=== PATIENT | female | born 1955 | race Caucasian/White ===

== ENCOUNTER 2019-11-20 11:17 | Outpatient (CLI) | payer MEDICARE, SELFPAY ==
[2019-11-20 12:34] LABS: Basophils Absolute Auto 0.1 K/mm3 (0.0-0.1); Basophils Percent Auto 0.6 % (0.2-1.2); Eosinophils Absolute Auto 0.1 K/mm3 (0-0.3); Eosinophils Percent Auto 0.6 % (0-4.4); Hematocrit 43.9 % (37.0-47.0); Hemoglobin 14.3 g/dL (12.0-15.0); Immature Granulocyte Absolute 0.04 K/mm3 (0.00-0.031); Immature Granulocyte Percent A 0.3 % (0-0.5); Lymphocytes Absolute Auto 2.86 K/mm3 (0.9-3.2); Lymphocytes Percent Auto 24.2 % (18.3-44.2); Mean Corpuscular HGB Conc 32.6 g/dl (32-36); Mean Corpuscular Hemoglobin 30.4 pg (26-34); Mean Corpuscular Volume 93.2 fl (80-100); Mean Platelet Volume 9.7 fl (7.4-10.4); Monocytes Percent Auto 8.1 % (2.6-8.5); Neutrophils Absolute Auto 7.8 K/mm3 (1.3-6.7); Neutrophils Percent Auto 66.2 % (45.5-73.1); Platelet Count Result 287 k/mm3 (150-375); Red Blood Count 4.71 M/mm3 (4.2-5.4); Red Cell Distribution Width 13.2 % (11.5-14.5); White Blood Count 11.8 K/mm3 (4.5-10.0)
[2019-11-20 12:46] LABS: Alanine Aminotransferase 21 U/L (4-35); Albumin Level 4.5 g/dL (3.5-5.1); Alkaline Phosphatase 83 U/L (38-126); Aspartate Amino Transferase 28 U/L (14-36); Bilirubin,Total 0.4 mg/dL (0.2-1.3); Blood Urea Nitrogen 25 mg/dL (7-17); Calcium 9.9 mg/dL (8.4-10.2); Carbon Dioxide 28 mmol/L (22-30); Chloride 98 mmol/L (98-107); Estimated Glomerular Filt Rate > 60; Glucose 102 mg/dL (65-105); Potassium 3.5 mmol/L (3.4-5.0); Sodium 135 mmol/L (137-145)
== END 2019-11-20 11:18 | disposition home or self-care (01) ==
PROVIDERS: PCP Family Medicine; Visit Provider Internal Medicine Cardiovascular Disease
DX: Z01.818 Encounter for other preprocedural examination (principal); R07.89 Other chest pain; R94.39 Abnormal result of other cardiovascular function study
CPT/HCPCS: 36415; 80053; 85025

== ENCOUNTER 2019-11-21 08:59 | Emergency (ER) | payer MEDICARE, SELFPAY ==
--- NOTE | ~2019-11-21 | XR_ITS ---
EXAMINATION: XR chest 2V EXAM DATE: 11/21/2019 09:42 INDICATION: Palpitations, chest discomfort. TECHNIQUE: Frontal and lateral projections of the chest obtained and reviewed. Comparison is made to prior examination from 11/27/2018. FINDINGS: The lungs are clear. There are no pleural effusions. The cardiomediastinal silhouette is within normal limits. There is no pneumothorax suspected. Mild thoracic scoliosis. IMPRESSION: No acute cardiopulmonary findings. Reviewed, dictated and finalized at location B. T SPECIALIST
[2019-11-21 09:16] VITALS: BP 162/93; PULSE 73; RESP 16; TEMP 36.5; O2SAT 98
--- NOTE | 2019-11-21 09:26 | ECG_ITS ---
Measurements Intervals [place] Rate: 78 P: 74 MA: 181 QRS: -5 QRSD: 105 T: 53 QT: 377 QTc: 432 Interpretive Statements SINUS RHYTHM VENTRICULAR BIGEMINY BORDERLINE ST-T WAVE ABNORMALITY- LATERAL LEADS BASELINE ARTIFACT- I, II, III, AVR, V4-V6 ABNORMAL ECG Electronically Signed On 11-21-2019 15:57:30 [employer]APER HAND[employer] by Tk Aaron D.O.
--- NOTE | 2019-11-21 09:29 | ED.ARRPALP ---
HPI - Arrhythmia/Palpitations General Chief Complaint: Arrhythmia/Palpitations <Rosita Frausto PA-C - Last Filed: 11/21/19 13:28> Stated Complaint: palpitations - bp issues <VITO Upton Last Filed: 11/21/19 13:28> Time Seen by Provider: 11/21/19 09:04 <Rosita Frausto PA-C - Last Filed: 11/21/19 13:28> Source: patient <VITO Upton Last Filed: 11/21/19 13:28> Mode of arrival: EMS <VITO Upton Last Filed: 11/21/19 13:28> Limitations: no limitations <Rosita Frausto PA-C - Last Filed: 11/21/19 13:28> History of Present Illness HPI narrative: This is a 64 year old female that presents to the ER for feeling generally unwell since this morning. Reports when she woke up she started to feel shaky when she was brushing her teeth. Also reports some nausa. Reports all night last night she was feeling some palpitations. Reports she did drink a lot of tea last night. Reports she has been having these episodes of chest discomfort and palpitations on and off for the last month. She saw Dr. Ricci yesterday and is scheduled for a cardiac cath in about a week. Denies fever, cold symptoms, shortness of breath, abdominal pain, vomiting, or dysuria. <VITO Upton Last Filed: 11/21/19 13:28> Related Data Home Medications: Home Medications Medication Instructions Recorded Confirmed atorvastatin 20 mg PO DAILY 11/21/19 guaifenesin 600 mg PO Q12H 11/21/19 lisinopril-hydrochlorothiazide 1 tablet PO DAILY 11/21/19 kznbgnugcpte-ekv-yevb-FA-vit K tablet PO DAILY 11/21/19 [Adults Multivitamin] omega-3 fatty acids 500 mg PO DAILY 11/21/19 pantoprazole 40 mg PO QAM 11/21/19 <VITO Upton Last Filed: 11/21/19 13:28> Allergies/Adverse Reactions: Allergies Allergy/AdvReac Type Severity Reaction Status Date / Time amoxicillin Allergy Mild Other Verified 12/18/18 09:04 erythromycin base Allergy Unknown Unknown Verified 12/18/18 09:04 <Rosita Frausto PA-C - Last Filed: 11/21/19 13:28> Review of Systems Review of Systems: Narrative: CONSTITUTIONAL: Denies fever CARDIOVASCULAR: Reports palpitations. Denies chest pain RESPIRATORY: Denies cough or dyspnea. GASTROINTESTINAL: Reports nausea. Denies abdominal pain, vomiting GENITOURINARY: Denies dysuria or hematuria. NEUROLOGIC: Reports weakness. <Rosita Frausto PA-C - Last Filed: 11/21/19 13:28> All systems reviewed & are unremarkable except as noted in HPI and below <Rosita Frausto PA-C - Last Filed: 11/21/19 13:28> [facility] Past Medical History Medical History: Medical History (Updated 11/21/19 @ 13:26 by Rosita Frausto PA-C) History of breast cancer History of gastroesophageal reflux (GERD) History of hyperlipidemia History of hypertension <Rosita Frausto PA-C - Last Filed: 11/21/19 13:28> Surgical History Surgical History: Surgical History (Updated 11/21/19 @ 09:34 by Rosita Frausto PA-C) History of cholecystectomy <Rosita Frausto PA-C - Last Filed: 11/21/19 13:28> Social History Social History: Social History (Updated 11/21/19 @ 09:33 by Rosita Frausto PA-C) Smoking status: Former smoker <Rosita Frausto PA-C - Last Filed: 11/21/19 13:28> Exam Narrative: Exam Narrative: GENERAL: Well-appearing, well-nourished, and in no acute distress. HEAD: Normocephalic, atraumatic. EYES: PERRLA and EOMI. ENT: Nares clear, no rhinorrhea or epistaxis. Mucous membranes moist. Oropharynx without tonsillar hypertrophy exudate or other lesions. Bilateral TMs pearly sorto non-bulging NECK: Supple. No adenopathy or masses. No carotid bruits or JVD CHEST: Clear to auscultation. No respiratory distress. No wheezes rales or rhonchi HEART: Regular rate and rhythm. No murmur heard. Normal peripheral pulses. EXTREMITIES: Normal range of motion. No edema. SKIN: Warm, dry, no rash. NEURO: No focal deficits. Alert and oriented x3. Cranial nerves II through
[2019-11-21 09:55] LABS: Basophils Percent Auto 0.2 % (0.2-1.2); Eosinophils Percent Auto 0.1 % (0-4.4); Hematocrit 43.9 % (37.0-47.0); Immature Granulocyte Absolute 0.04 K/mm3 (0.00-0.031); Immature Granulocyte Percent A 0.3 % (0-0.5); Lymphocytes Absolute Auto 1.58 K/mm3 (0.9-3.2); Lymphocytes Percent Auto 12.6 % (18.3-44.2); Mean Corpuscular HGB Conc 34.2 g/dl (32-36); Mean Corpuscular Hemoglobin 31.1 pg (26-34); Mean Corpuscular Volume 90.9 fl (80-100); Mean Platelet Volume 9.4 fl (7.4-10.4); Monocytes Absolute Auto 0.9 K/mm3 (0.1-0.6); Neutrophils Percent Auto 79.8 % (45.5-73.1); Platelet Count Result 274 k/mm3 (150-375); Red Blood Count 4.83 M/mm3 (4.2-5.4); Red Cell Distribution Width 13.1 % (11.5-14.5); White Blood Count 12.6 K/mm3 (4.5-10.0)
[2019-11-21 10:00] VITALS: BP 138/108; BP 144/90; BP 155/81; PULSE 71; PULSE 75; PULSE 79
[2019-11-21 10:05] LABS: Prothrombin Time 12.5 Seconds (11.1-14.7)
[2019-11-21 10:06] LABS: Partial Thromboplastin Time 29.2 SECONDS (22.3-36.8)
[2019-11-21 10:07] LABS: Alanine Aminotransferase 22 U/L (4-35); Albumin Level 4.6 g/dL (3.5-5.1); Alkaline Phosphatase 86 U/L (38-126); Aspartate Amino Transferase 29 U/L (14-36); Bilirubin,Total 0.7 mg/dL (0.2-1.3); Blood Urea Nitrogen 18 mg/dL (7-17); Calcium 10.1 mg/dL (8.4-10.2); Carbon Dioxide 26 mmol/L (22-30); Chloride 97 mmol/L (98-107); Estimated CRCL calculation 66 ml/min; Estimated Glomerular Filt Rate > 60; Glucose 124 mg/dL (65-105); Sodium 134 mmol/L (137-145)
[2019-11-21 10:08] LABS: D Dimer 0.46 ug/mL (<0.48)
[2019-11-21 10:18] LABS: Troponin I < 0.012 ng/mL (0.000-0.034)
[2019-11-21] MEDS: POTASSIUM CHLORIDE 20 MEQ TABLET 40 MEQ PO (11:06)
[2019-11-21] MEDS: SODIUM CHLORIDE 0.9% IV 1,000 ML 999 ML IV CONT (11:07)
[2019-11-21 11:19] VITALS: BP 159/89; PULSE 78; RESP 18; O2SAT 98
[2019-11-21 12:42] LABS: Troponin I 0.013 ng/mL (0.000-0.034)
[2019-11-21 13:17] VITALS: BP 145/70; PULSE 68; RESP 16; O2SAT 98
[2019-11-21 13:57] VITALS: BP 142/75; PULSE 74; RESP 18; O2SAT 98
== END 2019-11-21 13:58 | disposition home or self-care (01) ==
PROVIDERS: Physician Assistant; Emergency Provider General Practice; PCP Family Medicine
DX: I49.3 Ventricular premature depolarization (principal); Z87.891 Personal history of nicotine dependence; Z85.3 Personal history of malignant neoplasm of breast; K21.9 Gastro-esophageal reflux disease without esophagitis; E78.5 Hyperlipidemia, unspecified; I10 Essential (primary) hypertension; R00.8 Other abnormalities of heart beat; R94.31 Abnormal electrocardiogram [ECG] [EKG]
CPT/HCPCS: 36415; 71046; 80053; 84484; 85025; 85380; 85610; 85730; 93005; 96360; 99284; A9270; J7030

== ENCOUNTER 2019-12-30 11:04 | Outpatient (CLI) | payer MEDICARE, SELFPAY ==
[2019-12-30 11:53] LABS: Blood Urea Nitrogen 24 mg/dL (7-17); Calcium 9.3 mg/dL (8.4-10.2); Carbon Dioxide 29 mmol/L (22-30); Chloride 101 mmol/L (98-107); Estimated Glomerular Filt Rate > 60; Glucose 100 mg/dL (65-105); Potassium 4.1 mmol/L (3.4-5.0); Sodium 136 mmol/L (137-145)
== END 2019-12-30 11:05 | disposition home or self-care (01) ==
PROVIDERS: PCP Family Medicine; Visit Provider Internal Medicine Cardiovascular Disease
DX: E87.6 Hypokalemia (principal)
CPT/HCPCS: 36415; 80048

== ENCOUNTER → 2021-07-06 03:48 | Outpatient (CLI) | payer MEDICARE, SELFPAY ==
[2021-07-06 22:41] LABS: SARS-CoV-2 RNA PCR Negative
== END ==
PROVIDERS: PCP Family Medicine; Visit Provider Physician Assistant
DX: R68.89 Other general symptoms and signs (principal); Z20.822 Contact with and (suspected) exposure to COVID-19
CPT/HCPCS: C9803; U0003; U0005

== ENCOUNTER 2021-07-14 07:00 | Emergency (ER) | payer MEDICARE, SELFPAY ==
[2021-07-14 06:59] VITALS: BP 147/76; PULSE 78; RESP 16; TEMP 36.9; O2SAT 96
--- NOTE | 2021-07-14 07:14 | ECG_ITS ---
Measurements Intervals [place] Rate: 76 P: 62 [place]: 186 QRS: -14 QRSD: 97 T: 64 QT: 356 QTc: 400 Interpretive Statements SINUS RHYTHM VENTRICULAR BIGEMINY POSSIBLE LEFT ATRIAL ENLARGEMENT CANNOT RULE OUT SEPTAL INFARCT, AGE INDETERMINATE BORDERLINE ST ABNORMALITY- HIGH LATERAL LEADS BASELINE ARTIFACT- II, III, AVR, AVL, AVF ABNORMAL ECG Electronically Signed On 07-14-2021 10:08:49 CDT by Tk Aaron D.O.
[2021-07-14 07:32] LABS: Basophils Percent Auto 0.1 % (0.2-1.2); Hematocrit 45.9 % (37.0-47.0); Hemoglobin 16.2 g/dL (12.0-15.0); Immature Granulocyte Absolute 0.08 K/mm3 (0.00-0.031); Immature Granulocyte Percent A 0.5 % (0-0.5); Lymphocytes Absolute Auto 2.24 K/mm3 (0.9-3.2); Lymphocytes Percent Auto 14.6 % (18.3-44.2); Mean Corpuscular HGB Conc 35.3 g/dl (32-36); Mean Corpuscular Volume 93.5 fl (80-100); Mean Platelet Volume 9.1 fl (7.4-10.4); Monocytes Absolute Auto 1.3 K/mm3 (0.1-0.6); Monocytes Percent Auto 8.5 % (2.6-8.5); Neutrophils Absolute Auto 11.7 K/mm3 (1.3-6.7); Neutrophils Percent Auto 76.3 % (45.5-73.1); Platelet Count Result 258 k/mm3 (150-375); Red Blood Count 4.91 M/mm3 (4.2-5.4); Red Cell Distribution Width 12.4 % (11.5-14.5); White Blood Count 15.4 K/mm3 (4.5-10.0)
[2021-07-14 08:00] LABS: Troponin I 0.018 ng/mL (0.000-0.034)
[2021-07-14 08:11] LABS: Alanine Aminotransferase 30 U/L (4-35); Albumin Level 4.6 g/dL (3.5-5.1); Alkaline Phosphatase 66 U/L (38-126); Anion Gap 12 mmol/L (8-16); Aspartate Amino Transferase 39 U/L (14-36); Bilirubin,Total 0.6 mg/dL (0.2-1.3); Blood Urea Nitrogen 24 mg/dL (7-17); Calcium 10.2 mg/dL (8.4-10.2); Carbon Dioxide 25 mmol/L (22-30); Chloride 98 mmol/L (98-107); Estimated CRCL calculation 44 ml/min; Estimated Glomerular Filt Rate 49; Glucose 132 mg/dL (65-110); Sodium 135 mmol/L (137-145)
[2021-07-14 08:24] LABS: Potassium 3.4 mmol/L (3.4-5.0)
[2021-07-14 08:28] VITALS: BP 133/64; PULSE 66; RESP 14; O2SAT 93
[2021-07-14] MEDS: SODIUM CHLORIDE 0.9% IV 1,000 ML 999 ML IV CONT (08:28)
[2021-07-14 08:31] VITALS: PULSE 69
[2021-07-14 09:17] LABS: Add Urine Microscopic? YES; Appearance Urine Cloudy (Clear); Bacteria Urine Trace /hpf; Bilirubin Urine Negative (Negative); Blood Urine 3+ (Negative); Color Urine Yellow (Yellow); Glucose Urine UA Negative (Negative); Ketones Urine Negative (Negative); Leukocyte Esterase Ur Trace LEU/UL (Negative); Mucus Urine Rare /lpf; Nitrate Urine Negative (Negative); Protein Urine Negative (Negative); Specific Grav Ur 1.008 (1.001-1.035); Squamous Epithelial Cell Urine Many /hpf (Few); Transitional Epi Cells Urine Rare /hpf (None Seen); Urobilinogen Urine Negative mg/dL (<2.0)
[2021-07-14 10:03] VITALS: BP 140/108; PULSE 65; RESP 18; O2SAT 93
--- NOTE | 2021-07-14 10:19 | ED.GENADULT ---
HPI - General Adult General Chief complaint: Weakness Stated complaint: WEAKNESS Time Seen by Provider: 07/14/21 07:09 Source: patient Mode of arrival: EMS Limitations: no limitations History of Present Illness HPI narrative: 66-year-old with a history of hypertension, hyperlipidemia here with complaints of feeling extremely weak for past few weeks however for past 4 days she states that she has no appetite and feels shaky inside. She denies being anxious. No history of nausea or vomiting. She states that she had a Covid test done recently which was negative. Patient also mentions that she had a televisit with her primary doctor yesterday and was given her Levaquin. No history of fever or chills. Denies any chest pain or shortness of breath. She states that she always bradycardic. Onset (ago): week(s) (2) Severity: moderate Exacerbating factors: none Associated symptoms: loss of appetite and malaise Related Data Home Medications Medication Instructions Recorded Confirmed atorvastatin 20 mg PO DAILY 11/21/19 guaifenesin 600 mg PO Q12H 11/21/19 lisinopril-hydrochlorothiazide 1 tablet PO DAILY 11/21/19 zlwcgmjybdvo-cuc-gfmh-FA-vit K tablet PO DAILY 11/21/19 [Adults Multivitamin] omega-3 fatty acids 500 mg PO DAILY 11/21/19 pantoprazole 40 mg PO QAM 11/21/19 Allergies Allergy/AdvReac Type Severity Reaction Status Date / Time amoxicillin Allergy Mild Other Verified 12/18/18 09:04 erythromycin base Allergy Unknown Unknown Verified 12/18/18 09:04 Review of Systems Review of Systems: All systems reviewed & are unremarkable except as noted in HPI and below Constitutional: Constitutional: Reports no additional constitutional complaints Eyes: Eyes: Reports no additional eye complaints ENT: Reports system reviewed and no additional complaints, except as documented Cardiovascular: Cardiovascular: Reports no additional cardiovascular complaints Gastrointestinal: Gastrointestinal: Reports no additional gastrointestinal complaints Genitourinary: Genitourinary: Reports no additional female genitourinary complaints Musculoskeletal: Musculoskeletal: Reports no additional musculoskeletal complaints Integumentary/Breasts: Skin/Breast: Reports system reviewed and no additional complaints, except as docu Neurologic: Reports system reviewed and no additional complaints, except as documented Psychiatric: Psychiatric: Reports no additional psychiatric complaints PMFSH Past Medical History Medical History History of breast cancer History of gastroesophageal reflux (GERD) History of hyperlipidemia History of hypertension Surgical History Surgical History History of cholecystectomy Social History Social History Smoking status: Former smoker Exam Narrative: GENERAL: Well-appearing, well-nourished, and in no acute distress. HEAD: Normocephalic, atraumatic. EYES: PERRLA and EOMI.. NECK: Supple. CHEST: Clear to auscultation. No respiratory distress. HEART: Regular rate and rhythm. No murmur heard. Normal peripheral pulses. ABDOMEN: Soft, nontender, nondistended, normal active bowel sounds. EXTREMITIES: Normal range of motion. No edema. SKIN: Warm, dry, no rash. NEURO: No focal deficits. Alert and oriented x3. PSYCH: Normal mood and affect. Course Course Emergency Course: Patient was comfortably resting on the bed in no discomfort. I have given IV normal saline as the BUN/creatinine was elevated. Informed her about her lab work, EKG findings. Advised her to continue her Levaquin as prescribed by her primary doctor. Vital Signs Vital signs: Vital Signs Temperature 36.9 C 07/14/21 06:59 Pulse Rate 78 07/14/21 06:59 Respiratory Rate 16 07/14/21 06:59 Blood Pressure 147/76 H 07/14/21 06:59 Pulse Oximetry 96 07/14/21 06:59 Tem
== END 2021-07-14 10:28 | disposition home or self-care (01) ==
PROVIDERS: Emergency Provider Family Medicine; PCP Family Medicine
DX: R53.1 Weakness (principal); N39.0 Urinary tract infection, site not specified; I10 Essential (primary) hypertension; E78.5 Hyperlipidemia, unspecified; Z85.3 Personal history of malignant neoplasm of breast; K21.9 Gastro-esophageal reflux disease without esophagitis; Z87.891 Personal history of nicotine dependence; R00.8 Other abnormalities of heart beat; R94.31 Abnormal electrocardiogram [ECG] [EKG]
CPT/HCPCS: 36415; 80053; 81001; 84484; 85025; 87086; 87088; 93005; 96360; 99284; J7030

== ENCOUNTER 2021-09-27 01:20 | Day surgery (SDC) | payer MEDICARE, SELFPAY ==
[2021-09-08 15:25] VITALS: BMI 28.2
[2021-09-27 06:42] VITALS: BP 163/106; PULSE 78; RESP 18; TEMP 36.1; O2SAT 97
[2021-09-27] MEDS: LACTATED RINGERS 1,000 ML 150 ML IV CONT (06:58)
--- NOTE | 2021-09-27 07:19 | WPDANESEPPF ---
Anes - Initial Pre Proc Eval Procedure: Operation Date: 09/27/21 08:00 Proposed Procedures p Esophagogastroduodenoscopy & Screening Colonoscopy - Orlando Solitario MD Date/Time: 09/27/21 07:19 Surgeon: Orlando Solitario MD Pre Op Diagnosis: bloating, hx of gastric ulcer, neoplasm screening Patient Data Age: 66 Gender: F Height: 1.63 m Weight: 72.7 kg Last Vital Signs Temp 36.1 C L 09/27/21 06:42 Pulse 78 09/27/21 06:42 Resp 18 09/27/21 06:42 BP 163/106 H 09/27/21 06:42 Pulse Ox 97 09/27/21 06:42 Allergies Allergy/AdvReac Type Severity Reaction Status Date / Time amoxicillin Allergy Mild Other Verified 09/27/21 06:42 erythromycin base Allergy Unknown Unknown Verified 09/27/21 06:42 Home Medications Medication Instructions Recorded Confirmed Type lisinopril-hydrochlorothiazide 1 tablet PO DAILY 11/21/19 09/08/21 History yhknqrhbmgvj-ddj-qesy-FA-vit K 1 tablet PO DAILY 11/21/19 09/27/21 History [Adults Multivitamin] omega-3 fatty acids 500 mg PO DAILY 11/21/19 09/08/21 History pantoprazole 40 mg PO QAM 11/21/19 09/08/21 History ezetimibe 10 mg PO DAILY 09/08/21 09/08/21 History Patient hx anesthesia problems: none Family hx anesthesia problems: none Results Review: All pre-operative results and documents have been reviewed as part of the pre-operative evaluation. [facility] Past Medical History Medical History History of breast cancer History of gastroesophageal reflux (GERD) History of hyperlipidemia History of hypertension Surgical History Surgical History History of cholecystectomy Social History Social History (Updated 08/03/21 @ 13:10 by Cristina Paul CMA) Smoking status: Former smoker Tobacco type: cigarettes Additional smoking assessment comments: light smoker off and on for years; quit 4 years ago Alcohol intake: never Substance use: never Substance use type: does not use Living arrangements: alone Spiritual care concerns: No Anes - Eval Final PreProcedure Day of Procedure 09/27/21 07:19 Patient weight: overweight Heart: regular rate and rhythm Lungs: clear to auscultation and normal air movement Airway: Mallampati scale class II Neurological: alert and oriented Last oral intake: >/= 8 hours ASA classification: II Emergent: no Anesthetic plan: proceed Anesthesia type and monitoring: general GIVS and standard monitoring Results Review: All pre-operative results and documents have been reviewed as part of the pre-operative evaluation. Informed Consent: The patient's anesthetic plan and its attendant risks and benefits were discussed with the patient/family/POA. Questions were solicited and answers provided to the satisfaction of the patient/family/POA.
--- NOTE | 2021-09-27 07:54 | WPDGICN ---
Assessment and Plan Assessment and plan (1) History of gastric ulcer: Code(s): Z87.11 - Personal history of peptic ulcer disease Status: Acute Assessment and Plan: Patient has a history of a gastric ulcer. Continues to complain of belching. Plan is for an EGD to assess current status of her peptic ulcer disease. She should continue to avoid nonsteroidal anti-inflammatory agents. Further recommendations will be given after endoscopy. (2) Family history of colonic polyps: Code(s): Z83.71 - Family history of colonic polyps Status: Acute Assessment and Plan: Patient's family history is significant her sister had colon polyps requiring partial colectomy. Plan is for surveillance colonoscopy now and perhaps at intervals in the future. GI Consult Note Consult date/time: 09/27/21 07:54 HPI: Francisca Boucher is a 66 year old female Presents for colonoscopy an EGD. Patient complains of gas, belching, flatus. Appears to be ongoing. She has a distant history of a gastric ulcer identified by Dr. Vera several years ago. Follow-up was suggested but never accomplished till now. Additionally patient has a family history of colon polyps in her sister. Her sister had partial colectomy because of a large colon polyp. Patient herself states has been more than 20 years since last colonoscopy. Patient presents today for both upper and lower endoscopy. Review of Systems Review of Systems: All systems reviewed & are unremarkable except as noted in HPI and below PMFSH Past Medical History Medical History History of breast cancer History of gastroesophageal reflux (GERD) History of hyperlipidemia History of hypertension Surgical History Surgical History History of cholecystectomy Social History Social History (Updated 08/03/21 @ 13:10 by Cristina Paul CMA) Smoking status: Former smoker Tobacco type: cigarettes Additional smoking assessment comments: light smoker off and on for years; quit 4 years ago Alcohol intake: never Substance use: never Substance use type: does not use Living arrangements: alone Spiritual care concerns: No Meds Home Medications and Allergies Home Medications Medication Instructions Recorded Confirmed Type lisinopril-hydrochlorothiazide 1 tablet PO DAILY 11/21/19 09/08/21 History pdzewencyfru-ezi-wocw-FA-vit K 1 tablet PO DAILY 11/21/19 09/27/21 History [Adults Multivitamin] omega-3 fatty acids 500 mg PO DAILY 11/21/19 09/08/21 History pantoprazole 40 mg PO QAM 11/21/19 09/08/21 History ezetimibe 10 mg PO DAILY 09/08/21 09/08/21 History Allergies Allergy/AdvReac Type Severity Reaction Status Date / Time amoxicillin Allergy Mild Other Verified 09/27/21 06:42 erythromycin base Allergy Unknown Unknown Verified 09/27/21 06:42 Vital Signs Vital Signs - 24 hr 09/27/21 06:42 Temperature 96.9 F L Pulse Rate 78 Respiratory Rate 18 Blood Pressure 163/106 H Pulse Oximetry 97 Exam Narrative: Physical exam reveals patient to be alert. Vital signs stable. HEENT exam is unremarkable. Patient is anicteric. Lungs are clear to auscultation and percussion. Heart is without murmur or extra sounds. Abdominal exam bowel sounds are present soft nontender with no organomegaly. Digital external rectal exam is normal.
--- NOTE | 2021-09-27 08:17 | SUR.OPER ---
EGD END AT 0812. COLONOSCOPY START AT 0816.
[2021-09-27 08:28] VITALS: BP 127/74; PULSE 71; RESP 23; O2SAT 98
[2021-09-27 08:38] VITALS: BP 118/70; PULSE 57; RESP 19; O2SAT 97
[2021-09-27 08:48] VITALS: BP 140/77; PULSE 57; RESP 19; O2SAT 98
== END 2021-09-27 09:10 | disposition home or self-care (01) ==
PROVIDERS: PCP Family Medicine; Visit Provider Internal Medicine Gastroenterology
PROC: 0DJ08ZZ Inspection of Upper Intestinal Tract, Via Natural or Artificial Opening Endoscopic (ICD-10-PCS; CPT 43235; principal; 2021-09-27 08:00)
DX: Z12.11 Encounter for screening for malignant neoplasm of colon (principal); K64.8 Other hemorrhoids; K57.30 Diverticulosis of large intestine without perforation or abscess without bleeding; Z83.71 Family history of colonic polyps; Z87.11 Personal history of peptic ulcer disease; K21.9 Gastro-esophageal reflux disease without esophagitis; I10 Essential (primary) hypertension; E78.5 Hyperlipidemia, unspecified; Z85.3 Personal history of malignant neoplasm of breast; Z87.891 Personal history of nicotine dependence
CPT/HCPCS: 43239; G0105; 87081; J2704; J7120

== ENCOUNTER 2022-02-02 09:57 | Outpatient (CLI) | payer MEDICARE, SELFPAY ==
--- NOTE | ~2022-02-02 | US_ITS ---
EXAMINATION: US aorta [facility] DATE: 02/02/2022 11:54 INDICATION: Abdominal aortic aneurysm screening. TECHNIQUE: Grayscale, color Doppler, and pulsed Doppler images of the aorta and common iliac arteries were obtained. COMPARISON: Abdomen MRI 12/06/2018 FINDINGS: The aorta is normal in caliber. The right common iliac artery is normal in caliber. The left common i liac artery is normal in caliber. IMPRESSION: 1. No abdominal aortic aneurysm. Reviewed, dictated and finalized at location A.
== END 2022-02-02 09:58 | disposition home or self-care (01) ==
LOC: ANHIMG 09:58
PROVIDERS: PCP Family Medicine; Visit Provider Internal Medicine Cardiovascular Disease
DX: Z87.891 Personal history of nicotine dependence (principal)
CPT/HCPCS: 76706

== ENCOUNTER 2022-02-15 17:49 | Inpatient (IN) | payer MEDICARE, SELFPAY ==
[2022-02-15] VITALS (8 sets, daily range): BP systolic 93–132; BP diastolic 63–88; PULSE 75–97; RESP 13–21; TEMP 36.4–36.7; O2SAT 91–98; BMI 29.8
--- NOTE | ~2022-02-15 | XR_ITS ---
EXAMINATION: XR chest 2V DATE: 02/17/2022 11:05 INDICATION: Chest tightness. TECHNIQUE: Frontal and lateral views of the chest were obtained. COMPARISON: Chest 2 views 02/15/2022, CT abdomen and pelvis 10/29/2018 FINDINGS: The patient is rotated to her left on the frontal view. There are small pleural effusions. There is a diffuse interstitial pattern, consistent with mild pulmonary edema. No pneumothorax. The h eart size is normal. Surgical clips overlie right chest and abdomen. IMPRESSION: 1. Mild pulmonary edema. 2. Small pleural effusions. Reviewed, dictated and finalized at location A.
--- NOTE | ~2022-02-15 | XR_ITS ---
EXAMINATION: XR chest 2V DATE: 02/15/2022 18:19 INDICATION: Chest pain TECHNIQUE: PA and lateral views of the chest are obtained. COMPARISON: 11/21/2019 FINDINGS: The lungs are free of acute opacities. There is no pleural effusion or pneumothorax. The ca rdiomediastinal silhouette is normal. There is severe thoracic spondylosis. Thoracic levocurvature is noted. There are surgical clips in the outer right breast and upper abdomen. IMPRESSION: 1. No acute cardiopulmonary abnormality. Reviewed, dictated and finalized at location F.
--- NOTE | ~2022-02-15 | US_ITS ---
EXAMINATION: US right upper quadrant DATE: 02/17/2022 11:33 INDICATION: Elevated liver function tests, nausea and vomiting TECHNIQUE: Multiple grayscale and Doppler ultrasound images of the abdomen were obtained. COMPARISON: None available FINDINGS: Bowel gas obscures visualization of the pancreas. The visualized portions of the pancreas a re unremarkable. The liver is normal with normal echogenicity and echotexture. No surface nodularity. Normal hepatopetal flow in the main portal vein. The gallbladder is surgically absent. The common bi le duct measures 10 mm, consistent with post cholecystectomy state. IMPRESSION: 1. No sonographic correlate for the patient's symptoms. Reviewed, dictated and finalized at location B.
--- NOTE | 2022-02-15 17:52 | ECG_ITS ---
Measurements Intervals [place] Rate: 78 P: 72 [place]: 178 QRS: -42 QRSD: 94 T: 62 QT: 357 QTc: 409 Interpretive Statements SINUS RHYTHM WITH OCCASIONAL VENTRICULAR PREMATURE COMPLEXES WITH OCCASIONAL SUPRAVENTRICULAR PREMATURE COMPLEXES MARKED LEFT AXIS DEVIATION [QRS AXIS < -30] POOR R-WAVE PROGRESSION] COMPARED TO ECG 07/14/2021 07:05:00 THE PVCS ARE LESS FREQUENT Electronically Signed On 02-15-2022 20:17:09 CDT by Sunshine Loza M.D.
[2022-02-15 18:04] LABS: Basophils Absolute Auto 0.1 K/mm3 (0.0-0.1); Basophils Percent Auto 0.4 % (0.2-1.2); Eosinophils Percent Auto 0.3 % (0-4.4); Hematocrit 46.4 % (37.0-47.0); Hemoglobin 15.5 g/dL (12.0-15.0); Immature Granulocyte Absolute 0.03 K/mm3 (0.00-0.031); Immature Granulocyte Percent A 0.2 % (0-0.5); Lymphocytes Percent Auto 16.5 % (18.3-44.2); Mean Corpuscular HGB Conc 33.4 g/dl (32-36); Mean Corpuscular Hemoglobin 32.4 pg (26-34); Mean Corpuscular Volume 97.1 fl (80-100); Monocytes Absolute Auto 0.9 K/mm3 (0.1-0.6); Neutrophils Absolute Auto 9.2 K/mm3 (1.3-6.7); Neutrophils Percent Auto 75.6 % (45.5-73.1); Platelet Count Result 258 k/mm3 (150-375); Red Blood Count 4.78 M/mm3 (4.2-5.4); Red Cell Distribution Width 13.3 % (11.5-14.5); White Blood Count 12.2 K/mm3 (4.5-10.0)
[2022-02-15 18:15] LABS: Alanine Aminotransferase 35 U/L (4-35); Albumin Level 4.7 g/dL (3.5-5.1); Alkaline Phosphatase 91 U/L (38-126); Anion Gap 9 mmol/L (8-16); Aspartate Amino Transferase 46 U/L (14-36); Bilirubin,Total 0.4 mg/dL (0.2-1.3); Blood Urea Nitrogen 20 mg/dL (7-17); Calcium 9.7 mg/dL (8.4-10.2); Carbon Dioxide 27 mmol/L (22-30); Chloride 101 mmol/L (98-107); Estimated CRCL calculation 48 ml/min; Estimated Glomerular Filt Rate 55; Glucose 151 mg/dL (65-110); Lipase 96 U/L (23-300); Potassium 3.5 mmol/L (3.4-5.0); Sodium 137 mmol/L (137-145)
[2022-02-15 18:18] LABS: INR 1.1; Partial Thromboplastin Time 31.5 SECONDS (22.3-36.8); Prothrombin Time 13.5 Seconds (11.1-14.7)
[2022-02-15 18:30] LABS: Troponin I 0.113 ng/mL (0.000-0.034)
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
[2022-02-15] MEDS: SODIUM CHLORIDE 0.9% IV 1,000 ML 125 ML IV CONT (20:24)
[2022-02-15] MEDS: MORPHINE SULFATE (*CRX) 4 MG/ML INJ IV PUSH (20:28)
[2022-02-15] MEDS: ONDANSETRON INJ 4 MG/2 ML VIAL IV PUSH (21:20)
[2022-02-15] MEDS: ENOXAPARIN 80 MG/0.8 ML SYRINGE 75 MG SUB-Q (21:20)
--- NOTE | 2022-02-15 22:49 | PC.NURSE ---
This patient, Francisca Boucher, was admitted to IMU Room 213-01. Patient/family oriented to hospital policies and general routines including ID bracelet, bed and alarms, visiting hours, pain management, procedures, bathroom and other care routines, personal items, smoking policy, room service/diet, and visiting hours. Information on how to activate the Rapid Response Team has been discussed. Patient/Family are encouraged to report perceived risks to care and to ask questions if they do not understand what they are told or what they should do.
[2022-02-15] MEDS: PROMETHAZINE HCL 25 MG/ML AMPUL 12.5 MG IV PUSH (23:23)
[2022-02-16] VITALS (16 sets, daily range): BP systolic 100–108; BP diastolic 54–77; PULSE 59–83; RESP 14–18; TEMP 36.1–37.3; O2SAT 90–99
--- NOTE | 2022-02-16 | ECHO_ITS ---
Patient Info Name: Francisca Boucher Age: 66 years : 1955 Gender: Female Ht: 64 in Wt: 173 lbs BSA: 1.91 m2 HR: 90 bpm BP: 101 / 54 mmHg Technical Quality: Good Exam Date: 02/16/2022 10:04 AM Exam Location: [facility] Room: 213 Patient Status: Inpatient Admit Date: 02/15/2022 Staff Ordering Physician: Kusum Holbrook MD Dumpster Operator: Cristin Godinez RDCS Attending Provider: Kusum Holbrook MD Referring Physician: Yusef NICHOLSON; Exam Type: CA echo doppler color flow Study Info Indications - chest pain nstemi Complete two-dimensional, color flow and Doppler transthoracic echocardiogram is performed. Summary 1. Complete two-dimensional, color flow and Doppler transthoracic echocardiogram is performed. 2. Left ventricular chamber dimension is moderately enlarged. 3. Left ventricular systolic function is severely reduced, estimated at 20-25%. There is global hypokinesis however the base segments are more active suggestive of possible stress-induced cardiomyopathy. 4. There is mild aortic valve sclerosis. 5. There is trace mitral valve regurgitation. 6. There is mild tricuspid valve regurgitation. 7. Moderate pulmonary hypertension, estimated pulmonary arterial systolic pressure is 47 mmHg. 8. Compared to echocardiogram done 2019, significant decline in LV systolic function. Left Ventricle Left ventricular chamber dimension is moderately enlarged. Left ventricular systolic function is severely reduced, estimated at 20-25%. There is global hypokinesis however the base segments are more active suggestive of possible stress-induced cardiomyopathy. There is no increased left ventricular wall thickness. Left ventricular septal wall motion is normal. The left ventricular diastolic function is abnormal. Right Ventricle Right ventricular chamber dimension is normal. Right ventricular systolic function is normal. Left Atria Left atrial chamber dimension is normal. Right Atria Right atrial chamber dimension is normal. Atrial Septum Intact interatrial septum visualized by color flow imaging. Aortic Valve The aortic valve is trileaflet. There is mild aortic valve sclerosis. There is no aortic valve stenosis. There is no aortic valve regurgitation. Pulmonic Valve The pulmonic valve is normal. There is no pulmonic valve stenosis. There is mild pulmonic regurgitation. Mitral Valve The mitral valve has normal leaflets. There is no mitral valve stenosis. There is trace mitral valve regurgitation. Tricuspid Valve The tricuspid valve leaflets are normal. There is no significant tricuspid valve stenosis. There is mild tricuspid valve regurgitation. Moderate pulmonary hypertension, estimated pulmonary arterial systolic pressure is 47 mmHg. Pericardium/Pleural The pericardium appears normal. There is no pericardial effusion. Inferior Vena Cava Dilated inferior vena cava with <50% collapse upon inspiration consistent with Empty right atrial pressure, 15 mmHg. Aorta The aortic root size at the sinus of Valsalva is normal. The prox ascending aorta size is normal. Left Ventricular Outflow Tract Name Value Normal LVOT 2D LVOT Diameter 2
--- NOTE | 2022-02-16 01:19 | ECG_ITS ---
Measurements Intervals [place] Rate: 73 P: 65 [place]: 176 QRS: -23 QRSD: 91 T: 63 QT: 379 QTc: 418 Interpretive Statements SINUS RHYTHM WITH FREQUENT VENTRICULAR PREMATURE COMPLEXES POOR R-WAVE PROGRESSION COMPARED TO ECG 02/15/2022 18:01:43 NO SIGNIFICANT CHANGES Electronically Signed On 02-16-2022 20:47:58 CDT by Sunshine Loza M.D.
[2022-02-16] MEDS: SODIUM CHLORIDE 0.9% IV 100 ML 30 ML (01:31)
[2022-02-16] MEDS: MORPHINE SULFATE (*CRX) 4 MG/ML INJ IV PUSH (02:37)
[2022-02-16 02:40] LABS: Magnesium 1.9 mg/dL (1.6-2.3); Phosphorus 4.5 mg/dL (2.5-4.5)
[2022-02-16] MEDS: SODIUM CHLORIDE 0.9% IV 1,000 ML 125 ML IV CONT ×2 (05:39→16:20)
[2022-02-16] MEDS: guaiFENesin 12 HR 600 MG TABCR 1200 MG PO ×2 (09:06→19:59)
[2022-02-16] MEDS: KETOROLAC 0.5% OP SOLN 5 ML BOTTLE 1 DROP EACH EYE ×2 (09:07→19:58)
[2022-02-16] MEDS: ASPIRIN 81 MG ENTERIC TABLET PO (09:07)
[2022-02-16] MEDS: lisinopriL 10 MG TABLET PO (09:07)
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
[2022-02-16] MEDS: RIVAROXABAN 20 MG TABLET PO (16:27)
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
[2022-02-16] MEDS: ONDANSETRON INJ 4 MG/2 ML VIAL IV PUSH (18:22)
[2022-02-16] MEDS: PROMETHAZINE HCL 25 MG/ML AMPUL 12.5 MG IV PUSH (18:54)
[2022-02-16] MEDS: ACETAMINOPHEN 325 MG TABLET 650 MG PO (19:58)
[2022-02-16] MEDS: METOPROLOL TARTRATE 12.5 MG TABLET PO (19:59)
[2022-02-16] MEDS: PANTOPRAZOLE 40 MG TABLET PO (19:59)
[2022-02-16] MEDS: MORPHINE SULFATE (*CRX) 4 MG/ML INJ 1 MG IV PUSH (21:53)
[2022-02-17] VITALS (16 sets, daily range): BP systolic 86–121; BP diastolic 51–80; PULSE 57–89; RESP 16–18; TEMP 36.2–37.3; O2SAT 90–99
[2022-02-17] MEDS: traMADol HCL (*CRX) 50 MG TABLET PO (01:52)
--- NOTE | 2022-02-17 05:01 | PCRCNOTE ---
Pt took flow cannula out of nose during duration of her sleep study. This recording in the study may be false. See scanned apnea link report for more information.
[2022-02-17 05:19] LABS: Alanine Aminotransferase 268 U/L (4-35); Albumin Level 3.5 g/dL (3.5-5.1); Alkaline Phosphatase 110 U/L (38-126); Anion Gap 5 mmol/L (8-16); Aspartate Amino Transferase 223 U/L (14-36); Bilirubin,Total 0.9 mg/dL (0.2-1.3); Blood Urea Nitrogen 21 mg/dL (7-17); Calcium 8.6 mg/dL (8.4-10.2); Carbon Dioxide 26 mmol/L (22-30); Chloride 105 mmol/L (98-107); Cholesterol 204 mg/dL (0-200); Estimated CRCL calculation 60 ml/min; Estimated Glomerular Filt Rate > 60; Glucose 122 mg/dL (65-110); HDL Direct 66 mg/dL; Magnesium 1.7 mg/dL (1.6-2.3); Potassium 3.8 mmol/L (3.4-5.0); Sodium 136 mmol/L (137-145); Triglycerides 79 mg/dL (<150)
[2022-02-17 05:30] LABS: LDL Cholesterol Direct 89 mg/dL
[2022-02-17] MEDS: guaiFENesin 12 HR 600 MG TABCR 1200 MG PO ×2 (08:37→20:35)
[2022-02-17] MEDS: METOPROLOL TARTRATE 12.5 MG TABLET PO (08:37)
[2022-02-17] MEDS: ASPIRIN 81 MG ENTERIC TABLET PO (08:37)
[2022-02-17] MEDS: KETOROLAC 0.5% OP SOLN 5 ML BOTTLE 1 DROP EACH EYE ×2 (08:38→20:36)
[2022-02-17] MEDS: MAGNESIUM SULF 2 GM/WATER 50ML 2 GM/50 ML BAG IVPB (08:40)
[2022-02-17] MEDS: lisinopriL 10 MG TABLET PO (09:17)
[2022-02-17] MEDS: ONDANSETRON INJ 4 MG/2 ML VIAL IV PUSH (09:17)
--- NOTE | 2022-02-17 10:07 | PM.PNCARD ---
Progress Note: A&P Assessment and Plan (1) Cardiomyopathy: Code(s): I42.9 - Cardiomyopathy, unspecified Status: Acute Assessment and Plan: EF 70% in 2020 now severely reduced, EF estimated at 20-25%. There is global hypokinesis however the base segments are more active suggestive of possible stress-induced cardiomyopathy. Continue lisinopril Continue coreg LifeVest in place Repeat echocardiogram as an outpatient in 4-5 weeks (2) Elevated troponin: Code(s): R77.8 - Other specified abnormalities of plasma proteins Status: Acute Assessment and Plan: Related to stress induced cardiomyopathy (3) Hypertension: Code(s): I10 - Essential (primary) hypertension Status: Acute (4) Chest pain: Code(s): R07.9 - Chest pain, unspecified Status: Acute Assessment and Plan: Last night developed some chest tightness that she experiences with deep breathing. Also now has a rub on exam, heard at [facility]. ? pericarditis Repeat EKG CBC Monitor for hypotension and tachycardia Probably don't need to repeat echo unless concern for tamponade Will discontinue Xarelto and start on ibuprofen 600mg q6h to be tapered over 4 weeks as outpatient Already on PPI Subjective Date/time seen: 02/17/22 10:07 Cardiology follow up for cardiomyopathy, chest pain, HTN, hx PVC's She's feeling ok this morning but states last night she felt terrible and hurt all over. She also developed some chest pain with deep breaths. Review of Systems Constitutional: Constitutional: Denies chills, Denies fever(s) and Denies poor appetite Eyes: Eyes: Denies eye discharge, Denies loss of vision, Denies eye pain and Denies photophobia ENT: Denies dizziness, Denies epistaxis, Denies nasal congestion and Denies sore throat Cardiovascular: Cardiovascular: Reports chest pain, Denies syncope, Denies pedal edema, Denies leg edema, Denies palpitations, Denies dyspnea, Denies dyspnea on exertion and Denies orthopnea Respiratory: Respiratory: Denies cough, Denies dyspnea, Denies dyspnea on exertion and Denies wheezing Gastrointestinal: Gastrointestinal: Denies abdominal pain, Denies diarrhea, Denies nausea and Denies vomiting Genitourinary: Genitourinary: Denies hematuria, Denies genital lesions and Denies dysuria Musculoskeletal: Musculoskeletal: Denies arthralgias, Denies joint swelling and Denies numbness Integumentary/Breasts: Skin/Breast: Denies pruritus and Denies rash Neurologic: Denies dizziness, Denies syncope, Denies loss of vision and Denies numbness Psychiatric: Psychiatric: Denies anxiety and Denies depression Endocrine: Endocrine: Denies cold intolerance, Denies heat intolerance and Denies palpitations Hematologic/Lymphatic: Hematologic/Lymphatic: Denies easy bleeding and Denies easy bruising Allergic/Immunologic: Allergic/Immunologic: Denies urticaria and Denies wheezing Exam Const: General: cooperative, comfortable, no acute distress, alert and awake Nutritional Appearance: well nourished Orientation/consciousness: patient oriented x3 HENMT: Head: normal to inspection, normocephalic and atraumatic Ears: hearing grossly normal bilaterally General nose exam: Normal external nose present, Normal nares present and no nasal discharge noted Face and sinus: normal facial exam and no erythema Mouth: No drooling and No restricted motion Throat: uvula midline Eyes: General: appearance normal, both eyes and all related structures Alignment and Position: position normal Conjunctivae: conjunctivae normal Sclera: sclerae normal Direct Ophthalmoscopy: No photophobia Neck: Neck: normal visual inspection and no JVD Thyroid: thyroid normal Carotids: no bruits Lymphatic: lymphedema not noted Chest: Chest palpation & inspection: normal inspection of the chest and no tenderness Resp: Effort & Inspection: normal respiratory effort and no nasal flaring Auscultation: clear to auscultation paula
--- NOTE | 2022-02-17 10:28 | ECG_ITS ---
Measurements Intervals [place] Rate: 69 P: 17 [place]: 178 QRS: -31 QRSD: 91 T: 175 QT: 379 QTc: 407 Interpretive Statements SINUS RHYTHM WITH FREQUENT VENTRICULAR PREMATURE COMPLEXES WITH INTACT RETROGRADE ATRIAL ACTIVATION MARKED LEFT AXIS DEVIATION [QRS AXIS < -30] POSSIBLE ANTERIOR MYOCARDIAL INFARCTION , OF INDETERMINATE AGE [30 ms Q WAVE IN V3/V4, OR R < 0.2 mV IN V4] COMPARED TO ECG 02/16/2022 01:36:28 LEFT-AXIS DEVIATION NOW PRESENT Electronically Signed On 02-17-2022 12:54:48 CDT by Robi Coombs M.D.
--- NOTE | 2022-02-17 10:28 | PM.IMPN ---
Progress Note: A&P Assessment and Plan (1) Cardiomyopathy: Code(s): I42.9 - Cardiomyopathy, unspecified Status: Acute Assessment and Plan: Echo shows severely reduced LV systolic function with EF of 20-25% and global hypokinesis with more activity in the base segments. Diastolic dysfunction noted. She also has moderate pulmonary hypertension. No significant valvular disease. She had a heart catheterization 2 years ago that did not show any significant coronary disease. Given the history, it was felt that her cardiomyopathy was stress-induced. She was continued on her lisinopril and Lopressor added. Xarelto added to prevent LV thrombus. ApneaLink performed given the pulmonary hypertension but was inaccurate. Life vest added. 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 Consider infectious etiology. Check UA. Check for COVID and influenza. Repeat chest x-ray. Check EKG. Cardiology was informed about change in her status. Consider repeat echo specially since she is on Xarelto to assess pericardium. This could be a pleuritic rub is well although seems less likely. Appreciate Cardiology input. (2) Elevated LFTs: Code(s): R79.89 - Other specified abnormal findings of blood chemistry Status: Acute Assessment and Plan: AST/ALT normal on admission but worse today at 223 and 268 respectfully. No hx of alcohol abuse. Consider Viral hepatitis, Hepatic congestion, idiosyncratic drug reaction. Check ammonia level. Check right upper quadrant ultrasound. Check hepatitis panel. (3) Elevated troponin: Code(s): R77.8 - Other specified abnormalities of plasma proteins Status: Acute Assessment and Plan: Troponin climbed to 1.5. EKG reviewed. Left heart catheterization in 2019 showed minimal plaque in the LAD. Was felt the elevated troponins were more likely related to type 2 [place]. As above. (4) Chest pain: Code(s): R07.9 - Chest pain, unspecified Status: Acute Assessment and Plan: Chest pain related to the type 2 [place] and cardiomyopathy. Treatment as above. Will continue aspirin for now. (5) Hypertension: Code(s): I10 - Essential (primary) hypertension Status: Acute Assessment and Plan: Blood pressure reviewed on 02/17 Blood pressure remains well controlled. Watch for hypotension. (6) GERD (gastroesophageal reflux disease): Code(s): K21.9 - Gastro-esophageal reflux disease without esophagitis Status: Acute Assessment and Plan: Stable. Continue Protonix. (7) DVT prophylaxis: Code(s): Z29.9 - Encounter for prophylactic measures, unspecified Status: Acute Assessment and Plan: Kirsten Subjective Date/time seen: 02/17/22 10:28 Interval history: 66yo female with HTN, GERD and dyslipidemia here for chest pain. Patient's symptoms worsened last evening but better this morning but feels 'miserable'. She slept poorly last night. She denies chest pain but has chest ?tightness? when she takes deep breath. She denies feeling short of breath. She does state that ?everything is sore?. No dysuria or hematuria. She does have a slight cough but this is chronic related to sinus drainage. She did have an episode of hallucinations after dose of Phenergan last evening. She feels nauseous. She has not been up out of bed much. Life vest in place. No further hallucinations. Exam Narrative: AF 97.3 101/72 89 18 95% ra Gen - NARD Chest - CTA bilaterally, nml RR CV - irregular. +cardiac rub with possible gallop. Telemetry showing PVCs and trigeminy Abd - Soft, NT/ND, Positive BS Ext - No pedal edema Psych - Nml mood and affect. Neuro - AOx4, no focal weakness Skin - Warm and dry Objective Data Vital Signs Vital Signs: Vital Signs - 24 hr 02/16/22 12:00 02/16/22 14:00 02/16/22 16:00 Temperature 97 F L 96.9 F L Pulse Rate 73 62 61 Respiratory Rate 18 14
[2022-02-17 11:03] LABS: Ammonia < 9 umol/L (9-30)
[2022-02-17 11:07] LABS: Add Urine Microscopic? YES; Appearance Urine Cloudy (Clear); Bacteria Urine 4+ /hpf; Bilirubin Urine Negative (Negative); Blood Urine 3+ (Negative); Color Urine Amber (Yellow); Glucose Urine UA Negative (Negative); Ketones Urine 1+ mg/dL (Negative); Leukocyte Esterase Ur 2+ LEU/UL (Negative); Mucus Urine Heavy /lpf; Nitrate Urine Positive (Negative); Protein Urine 1+ mg/dL (Negative); RBC Urine 21-50 /hpf (0-2); Specific Grav Ur 1.029 (1.001-1.035); Squamous Epithelial Cell Urine Few /hpf (Few); Urobilinogen Urine Negative mg/dL (<2.0); WBC Urine 51-75 /hpf
[2022-02-17 11:15] LABS: Acetaminophen < 10 ug/mL (10-30)
[2022-02-17 11:51] LABS: Hepatitis B Surface Antigen Negative (Negative)
[2022-02-17 11:56] LABS: HAV RESULT Negative (Negative); Hepatitis B Core IgM Result Negative (Negative)
[2022-02-17 12:08] LABS: Hepatitis C Virus Antibody Negative (Negative)
[2022-02-17 12:22] LABS: Influenza A QL RT-PCR Negative (Negative); Influenza B QL RT-PCR Negative (Negative); SARS-CoV-2 RNA PCR Negative
[2022-02-17 12:34] LABS: Folic Acid > 20.0 ng/mL (2.76->20)
[2022-02-17] MEDS: IBUPROFEN 600 MG TABLET PO ×2 (12:43→17:02)
[2022-02-17] MEDS: PANTOPRAZOLE 40 MG TABLET PO (20:37)
[2022-02-18] VITALS (9 sets, daily range): BP systolic 91–115; BP diastolic 64–72; PULSE 50–75; RESP 16–18; TEMP 36.2–36.6; O2SAT 92–98
[2022-02-18 04:57] LABS: Basophils Absolute Auto 0.1 K/mm3 (0.0-0.1); Basophils Percent Auto 0.4 % (0.2-1.2); Eosinophils Percent Auto 0.3 % (0-4.4); Hematocrit 39.4 % (37.0-47.0); Hemoglobin 13.3 g/dL (12.0-15.0); Immature Granulocyte Absolute 0.04 K/mm3 (0.00-0.031); Immature Granulocyte Percent A 0.3 % (0-0.5); Lymphocytes Absolute Auto 1.83 K/mm3 (0.9-3.2); Lymphocytes Percent Auto 15.7 % (18.3-44.2); Mean Corpuscular HGB Conc 33.8 g/dl (32-36); Mean Corpuscular Hemoglobin 32.4 pg (26-34); Mean Corpuscular Volume 95.9 fl (80-100); Mean Platelet Volume 9.6 fl (7.4-10.4); Monocytes Absolute Auto 1.3 K/mm3 (0.1-0.6); Monocytes Percent Auto 11.3 % (2.6-8.5); Neutrophils Absolute Auto 8.4 K/mm3 (1.3-6.7); Platelet Count Result 163 k/mm3 (150-375); Red Blood Count 4.11 M/mm3 (4.2-5.4); Red Cell Distribution Width 13.4 % (11.5-14.5); White Blood Count 11.6 K/mm3 (4.5-10.0)
[2022-02-18 05:14] LABS: Alanine Aminotransferase 173 U/L (4-35); Albumin Level 3.1 g/dL (3.5-5.1); Alkaline Phosphatase 86 U/L (38-126); Anion Gap 3 mmol/L (8-16); Aspartate Amino Transferase 108 U/L (14-36); Bilirubin,Total 0.7 mg/dL (0.2-1.3); Blood Urea Nitrogen 27 mg/dL (7-17); Calcium 8.1 mg/dL (8.4-10.2); Carbon Dioxide 27 mmol/L (22-30); Chloride 105 mmol/L (98-107); Estimated CRCL calculation 54 ml/min; Estimated Glomerular Filt Rate > 60; Glucose 89 mg/dL (65-110); Magnesium 2.2 mg/dL (1.6-2.3); Phosphorus 2.9 mg/dL (2.5-4.5); Potassium 3.7 mmol/L (3.4-5.0); Sodium 135 mmol/L (137-145)
[2022-02-18] MEDS: IBUPROFEN 600 MG TABLET PO ×2 (06:33→12:54)
--- NOTE | 2022-02-18 08:40 | PC.NURSE ---
Spoke with Dr. Loza regarding decrease BP on patient. BP 91/64, HR 57. New order to hold 12.5mg PO Metoprolol and 10mg-12.5mg PO Lisinopril/HCTZ this AM.
[2022-02-18] MEDS: guaiFENesin 12 HR 600 MG TABCR 1200 MG PO (08:45)
[2022-02-18] MEDS: ASPIRIN 81 MG ENTERIC TABLET PO (08:45)
[2022-02-18] MEDS: KETOROLAC 0.5% OP SOLN 5 ML BOTTLE 1 DROP EACH EYE (08:45)
--- NOTE | 2022-02-18 11:09 | PM.PNCARD ---
Progress Note: A&P Assessment and Plan (1) Cardiomyopathy: Code(s): I42.9 - Cardiomyopathy, unspecified Status: Acute Assessment and Plan: EF 70% in 2020 now severely reduced, EF estimated at 20-25%. There is global hypokinesis however the base segments are more active suggestive of possible stress-induced cardiomyopathy. Continue lisinopril but reduce dose to 5 mg daily Continue coreg Spread out dosing to avoid symptomatic hypotension Reviewed benefits and use of her LifeVest. Repeat echocardiogram as an outpatient in 4-5 weeks Okay for discharge from my point of view (2) Elevated troponin: Code(s): R77.8 - Other specified abnormalities of plasma proteins Status: Acute Assessment and Plan: Related to stress induced cardiomyopathy (3) Hypertension: Code(s): I10 - Essential (primary) hypertension Status: Acute Assessment and Plan: Blood pressure running low now. (4) PVCs (premature ventricular contractions): Code(s): I49.3 - Ventricular premature depolarization Status: Acute (5) Pericarditis: Code(s): I31.9 - Disease of pericardium, unspecified Status: Acute Assessment and Plan: Developed some chest tightness that she experiences with deep breathing. Also now has a rub on exam, appears to have pericarditis Repeat EKG does not show any typical changes CBC shows ongoing elevation of white blood cell count Does run a low blood pressure but doubt any tamponade Discontinued Xarelto and started on ibuprofen 600mg q6h to be tapered over 4 weeks as outpatient Add colchicine Already on PPI Subjective Date/time seen: 02/18/22 11:09 Interval history: Cardiology follow up for Takotsubo cardiomyopathy, chest pain, HTN, hx PVC's 02/17/2022: She's feeling ok this morning but states last night she felt terrible and hurt all over. She also developed some chest pain with deep breaths. Pericardial friction rub heard, ibuprofen in added, anticoagulant held Date of service 02/18/2022: Feeling much much better today, hopes to be discharged. Up in room with no shortness of breath or dizziness. Still some pleuritic chest pain but improved. Blood pressure is running low but no tachycardia. Morning cardiac meds held. Has been fitted for her Life Vest. On room air. 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 LFTs declining. Chest x-ray was read as showing mild CHF and small pleural effusions; personally reviewed, not very impressed with the pulmonary edema. Telemetry shows occasional PVCs. Review of Systems Constitutional: Constitutional: Denies fatigue Eyes: Eyes: Reports no additional eye complaints ENT: Denies epistaxis Cardiovascular: Cardiovascular: Reports chest pain, Denies pedal edema and Denies lightheadedness Respiratory: Respiratory: Denies dyspnea and Denies dyspnea on exertion Gastrointestinal: Gastrointestinal: Denies abdominal pain Genitourinary: Genitourinary: Denies hematuria Musculoskeletal: Musculoskeletal: Reports no additional musculoskeletal complaints Neurologic: Denies confusion Psychiatric: Psychiatric: Reports no additional psychiatric complaints Exam Narrative: Smiling, looks comfortable in bed Const: General: comfortable and no acute distress HENMT: General nose exam: no epistaxis Mouth: Yes moist mucous membranes Eyes: EOM: EOMs intact bilaterally Neck: Neck: supple Resp: Effort & Inspection: normal respiratory effort Auscultation: clear to auscultation bilaterally and no rales Cardio: Rate: regular rate Rhythm: regular rhythm Heart sounds: Rub heart sound present Other: Prominent 2 component pericardial friction rub heard GI: GI Palp: Yes Soft to palpation and No Tenderness to palpation present (GI) Skin: General skin exam: normal color and no rashes or lesions noted Neuro: Cognition (Neuro): normal cognition Speech: normal speech Extrem: Genera
[2022-02-18] MEDS: COLCHICINE 0.6 MG TABLET PO (12:52)
[2022-02-18] MEDS: lisinopriL 5 MG TABLET PO (12:54)
--- NOTE | 2022-02-18 13:03 | PC.NURSE ---
Pt to receive Rocephin IVPB before discharge today per Dr. Elizabeth
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
== END 2022-02-18 14:35 | disposition home or self-care (01) | DRG 315 ==
LOC: ANHED 20:00 → ANHIMU 20:57
PROVIDERS: Emergency Medicine; Internal Medicine; Admitting Provider Internal Medicine; Emergency Provider Family Medicine; PCP Family Medicine; Visit Provider Student in an Organized Health Care Education/Training Program
DX: I51.81 Takotsubo syndrome (principal); R44.3 Hallucinations, unspecified; I31.9 Disease of pericardium, unspecified; N39.0 Urinary tract infection, site not specified; Z20.822 Contact with and (suspected) exposure to COVID-19; B96.1 Klebsiella pneumoniae [K. pneumoniae] as the cause of diseases classified elsewhere; E78.5 Hyperlipidemia, unspecified; I10 Essential (primary) hypertension; I27.20 Pulmonary hypertension, unspecified; I49.3 Ventricular premature depolarization; K21.9 Gastro-esophageal reflux disease without esophagitis; R77.8 Other specified abnormalities of plasma proteins; Z79.82 Long term (current) use of aspirin; Z87.891 Personal history of nicotine dependence; Z88.0 Allergy status to penicillin; Z85.3 Personal history of malignant neoplasm of breast; Z90.49 Acquired absence of other specified parts of digestive tract
CPT/HCPCS: 36415; 71046; 76705; 80053; 80061; 80074; 80307; 81001; 82140; 82607; 82746; 83690; 83735; 84100; 84443; 84484; 85025; 85610; 85730; 87077; 87086; 87186; 87502; 93005; 93306; 94762; 99285; A9270; C9803; J0696; J1650; J2270; J2405; J2550; J3475; J7030; U0003; U0005

== ENCOUNTER 2022-03-05 15:50 | Emergency (ER) | payer MEDICARE, SELFPAY ==
--- NOTE | ~2022-03-05 | XR_ITS ---
EXAMINATION: XR chest 2V Exam Date/Time: 03/05/2022 16:40 CDT CLINICAL HISTORY: palpitations, increase in urination HX HTN,FORMER SMOKER Comparison: 02/17/2022. RESULT: Lines, tubes, and devices: Right breast and right upper quadrant surgical clips. Lungs and pleura: Clear. Cardiomediastinal silhouette: Stable cardiomediastinal silhouette. Other: No acute osseous or upper abdominal finding. IMPRESSION: No acute cardiopulmonary process Reviewed, dictated and finalized at location K.
--- NOTE | 2022-03-05 15:55 | ECG_ITS ---
Measurements Intervals [place] Rate: 68 P: 59 NE: 186 QRS: -52 QRSD: 91 T: 171 QT: 429 QTc: 457 Interpretive Statements SINUS RHYTHM VENTRICULAR PREMATURE COMPLEXES LEFT ANTERIOR FASCICULAR BLOCK POOR R WAVE PROGRESSION, CONSIDER ANTERIOR INFARCT T WAVE ABNORMALITY IN HIGH LATERAL LEADS- CONSIDER ISCHEMIA ABNORMAL ECG Electronically Signed On 03-05-2022 20:11:33 CDT by Tk Aaron D.O.
[2022-03-05 16:01] VITALS: BP 152/75; PULSE 71; RESP 16; TEMP 36.8; O2SAT 96
--- NOTE | 2022-03-05 17:06 | ED.ARRPALP ---
HPI - Arrhythmia/Palpitations General Chief Complaint: Arrhythmia/Palpitations Stated Complaint: poss uti Time Seen by Provider: 03/05/22 15:59 History of Present Illness HPI narrative: Patient is a 66-year-old female with history of cardiomyopathy, pericarditis, here for evaluation of palpitations today. Patient states that her palpitations are present when she is up and moving around, and they resolve when she stops exerting herself. Patient was recently hospitalized here last month in the setting of chest pain with elevated troponin. She underwent an echo which showed she had an EF of 20%, which was new. She was discharged with a LifeVest and a diagnosis of pericarditis/cardiomyopathy given auscultated friction rub on exam. Taking Coreg, lisinopril, ibuprofen, and colchicine for these diagnoses. Patient states that she was not shocked by her LifeVest when she had the symptoms of palpitations. She is not having any chest pain, shortness of breath. She was additionally treated for UTI while she was inpatient, she completed her course of antibiotics as an outpatient, but she states that her urinary symptoms returned 3 days ago. She is currently having urinary frequency urgency and burning. Denies low back pain, fevers. She was given a prescription for Cipro by her PCP, but she was unable to fill this because reportedly pharmacist advised this interacts with colchicine. Related Data Home Medications Medication Instructions Recorded Confirmed aspirin 81 mg PO DAILY 02/15/22 02/15/22 ketorolac 1 drp OPHTHALMIC (EYE) BID 02/15/22 02/15/22 omeprazole 20 mg PO HS 02/15/22 02/15/22 pantoprazole 40 mg PO DAILY 02/15/22 02/15/22 Allergies Allergy/AdvReac Type Severity Reaction Status Date / Time amoxicillin Allergy Mild Other Verified 02/15/22 18:46 erythromycin base Allergy Unknown Unknown Verified 02/15/22 18:46 clindamycin Allergy Gastrointestinal Verified 02/15/22 18:46 Upset Penicillins Allergy Difficulty Verified 02/15/22 18:46 Swallowing promethazine AdvReac Hallucinati Verified 02/17/22 12:44 ng sulfamethoxazole AdvReac Nausea Verified 02/15/22 23:02 [From Sulfamethoxazole-Trimethoprim] trimethoprim AdvReac Nausea Verified 02/15/22 23:02 [From Sulfamethoxazole-Trimethoprim] Review of Systems Review of Systems: Gen: Denies fevers or chills Eyes: Denies eye pain or visual change ENT: Denies congestion Respiratory: Denies shortness of breath or cough CV: Reports palpitations. Denies chest pain. GI: Denies abdominal pain nausea, emesis or diarrhea : Reports urgency, dysuria, frequency Musculoskeletal: Denies back pain or muscle pain Neuro: Denies numbness, tingling, weakness or focal weakness Skin: Denies rash. Except as documented, all other systems reviewed and negative All systems reviewed & are unremarkable except as noted in HPI and below PMFSH Past Medical History Medical History History of breast cancer History of gastroesophageal reflux (GERD) History of hyperlipidemia History of hypertension Surgical History Surgical History History of cholecystectomy Social History Social History Smoking status: Former smoker Tobacco type: cigarettes Additional smoking assessment comments: light smoker off and on for years; quit 4 years ago Alcohol intake: never Substance use: never Substance use type: does not use Spiritual care concerns: No Exam Narrative: APPEARANCE: Well appearing, no pain in distress, well-nourished. Head: normocephalic and atraumatic. EYES: PERRLA/EOMI, conjunctivae clear NOSE: No nasal drainage EARS: External ear normal in appearance THROAT: Oropharynx is clear. Mucous membranes are moist. NECK: Supple. No adenopathy, no masses. RESPIRATORY: Airway patent, re
[2022-03-05 17:08] LABS: Basophils Percent Auto 0.3 % (0.2-1.2); Eosinophils Percent Auto 0.3 % (0-4.4); Hematocrit 44.3 % (37.0-47.0); Hemoglobin 14.8 g/dL (12.0-15.0); Immature Granulocyte Absolute 0.03 K/mm3 (0.00-0.031); Immature Granulocyte Percent A 0.3 % (0-0.5); Lymphocytes Absolute Auto 1.88 K/mm3 (0.9-3.2); Lymphocytes Percent Auto 16.4 % (18.3-44.2); Mean Corpuscular HGB Conc 33.4 g/dl (32-36); Mean Corpuscular Hemoglobin 32.2 pg (26-34); Mean Corpuscular Volume 96.5 fl (80-100); Mean Platelet Volume 10.1 fl (7.4-10.4); Monocytes Absolute Auto 1.1 K/mm3 (0.1-0.6); Monocytes Percent Auto 9.5 % (2.6-8.5); Neutrophils Absolute Auto 8.4 K/mm3 (1.3-6.7); Neutrophils Percent Auto 73.2 % (45.5-73.1); Platelet Count Result 206 k/mm3 (150-375); Red Blood Count 4.59 M/mm3 (4.2-5.4); White Blood Count 11.5 K/mm3 (4.5-10.0)
[2022-03-05 17:11] LABS: Appearance Urine Cloudy (Clear); Bilirubin Urine Negative (Negative); Blood Urine 3+ (Negative); Color Urine Yellow (Yellow); Glucose Urine UA Negative (Negative); Ketones Urine 1+ mg/dL (Negative); Leukocyte Esterase Ur 3+ LEU/UL (Negative); Nitrate Urine Positive (Negative); Protein Urine Trace mg/dL (Negative); Specific Grav Ur 1.015 (1.001-1.035); Urobilinogen Urine 0.2 mg/dL (<2.0)
[2022-03-05] MEDS: IBUPROFEN 600 MG TABLET PO (17:11)
[2022-03-05 17:16] LABS: Bacteria Urine 2+ /hpf; RBC Urine 51-75 /hpf (0-2); Squamous Epithelial Cell Urine Rare /hpf (Few); WBC Urine >75 /hpf
[2022-03-05 17:17] LABS: Add Urine Microscopic? YES
[2022-03-05 17:54] LABS: Alanine Aminotransferase 20 U/L (6-35); Albumin Level 3.7 g/dL (3.5-5.1); Alkaline Phosphatase 65 U/L (38-126); Anion Gap 4 mmol/L (8-16); Aspartate Amino Transferase 26 U/L (14-36); Bilirubin,Total 0.6 mg/dL (0.2-1.3); Blood Urea Nitrogen 14 mg/dL (7-17); Calcium 8.7 mg/dL (8.4-10.2); Carbon Dioxide 26 mmol/L (22-30); Chloride 106 mmol/L (98-107); Estimated CRCL calculation 67 ml/min; Estimated Glomerular Filt Rate > 60; Glucose 119 mg/dL (65-110); Potassium 3.2 mmol/L (3.4-5.0); Sodium 136 mmol/L (137-145)
[2022-03-05 20:22] VITALS: PULSE 58; RESP 14; O2SAT 99
== END 2022-03-05 20:10 | disposition home or self-care (01) ==
PROVIDERS: Physician Assistant; Emergency Provider Emergency Medicine; PCP Family Medicine
DX: N30.01 Acute cystitis with hematuria (principal); I42.9 Cardiomyopathy, unspecified; E78.5 Hyperlipidemia, unspecified; I10 Essential (primary) hypertension; K21.9 Gastro-esophageal reflux disease without esophagitis; Z85.3 Personal history of malignant neoplasm of breast; Z87.891 Personal history of nicotine dependence; I49.3 Ventricular premature depolarization; I44.4 Left anterior fascicular block; R94.31 Abnormal electrocardiogram [ECG] [EKG]; Z79.82 Long term (current) use of aspirin
CPT/HCPCS: 36415; 71046; 80053; 81001; 85025; 87077; 87086; 87186; 93005; 95864; 96365; 99284; A9270; J0696

== ENCOUNTER 2022-03-11 11:27 | Emergency (ER) | payer MEDICARE, SELFPAY ==
[2022-03-11] VITALS (11 sets, daily range): BP systolic 138–150; BP diastolic 76–102; PULSE 59–86; RESP 14–20; TEMP 36.7; O2SAT 95–98
[2022-03-11 11:53] LABS: Appearance Urine Clear (Clear); Bilirubin Urine Negative (Negative); Blood Urine 2+ (Negative); Color Urine Yellow (Yellow); Glucose Urine UA Negative (Negative); Ketones Urine Trace mg/dL (Negative); Leukocyte Esterase Ur Negative LEU/UL (Negative); Nitrate Urine Negative (Negative); Protein Urine Negative (Negative); Urobilinogen Urine 0.2 mg/dL (<2.0)
[2022-03-11 12:08] LABS: Bacteria Urine Trace /hpf; Mucus Urine Rare /lpf; RBC Urine 21-50 /hpf (0-2); Squamous Epithelial Cell Urine Rare /hpf (Few); WBC Urine 0-3 /hpf
[2022-03-11 12:20] LABS: Add Urine Microscopic? YES
--- NOTE | 2022-03-11 12:36 | ECG_ITS ---
Measurements Intervals [place] Rate: 61 P: 52 [place]: 195 QRS: -53 QRSD: 90 T: 179 QT: 449 QTc: 455 Interpretive Statements SINUS RHYTHM VENTRICULAR TRIGEMINY POSSIBLE LEFT ATRIAL ENLARGEMENT LOW QRS VOLTAGE IN PRECORDIAL LEADS LEFT ANTERIOR FASCICULAR BLOCK CANNOT RULE OUT SEPTAL INFARCT, AGE INDETERMINATE ST-T WAVE ABNORMALITY IN ANTEROLAT/HIGH LAT LEADS- CONSIDER ISCHEMIA BASELINE ARTIFACT- I, II, III, AVR, AVL, AVF ABNORMAL ECG Electronically Signed On 03-11-2022 17:03:42 CDT by Tk Aaron D.O.
--- NOTE | 2022-03-11 13:11 | ED.GENADULT ---
HPI - General Adult General Chief complaint: Urogenital-Female Stated complaint: uti symptoms Time Seen by Provider: 03/11/22 12:06 Source: patient and RN notes reviewed Mode of arrival: ambulatory Limitations: no limitations History of Present Illness HPI narrative: This is a 66 year old female with history of GERD, hypertension, cardiomyopathy who presents for evaluation of palpitations and increased urinary frequency. Patient states last weekend she was in ER for increased urinary frequency and palpitation. She was diagnosed with UTI and given antibiotics. She states she was doing well. This morning she woke up with need to urinary 4 times. She also reports feeling like her heart was beating irregular when she was walking to bed. She reports this feeling resolved until she had to get up to urinate again. She denies dysuria, nausea, vomiting, fever, chills, chest pain, sob, or abdominal pain. She also denies diaphoresis. She has LifeVest on due to EF of 20% . Related Data Home Medications Medication Instructions Recorded Confirmed aspirin 81 mg PO DAILY 02/15/22 02/15/22 ketorolac 1 drp OPHTHALMIC (EYE) BID 02/15/22 02/15/22 omeprazole 20 mg PO HS 02/15/22 02/15/22 pantoprazole 40 mg PO DAILY 02/15/22 02/15/22 Allergies Allergy/AdvReac Type Severity Reaction Status Date / Time amoxicillin Allergy Mild Other Verified 03/11/22 11:34 erythromycin base Allergy Unknown Unknown Verified 03/11/22 11:34 clindamycin Allergy Gastrointestinal Verified 03/11/22 11:34 Upset Penicillins Allergy Difficulty Verified 03/11/22 11:34 Swallowing promethazine AdvReac Hallucinati Verified 03/11/22 11:34 ng sulfamethoxazole AdvReac Nausea Verified 03/11/22 11:34 [From Sulfamethoxazole-Trimethoprim] trimethoprim AdvReac Nausea Verified 03/11/22 11:34 [From Sulfamethoxazole-Trimethoprim] Review of Systems Review of Systems: All systems reviewed & are unremarkable except as noted in HPI and below Constitutional: Constitutional: Denies chills and Denies fever(s) Cardiovascular: Cardiovascular: Denies chest pain, Denies rapid heart rate, Reports irregular heart rhythm and Denies radiating jaw, neck or arm pain Respiratory: Respiratory: Denies cough, Denies dyspnea and Denies wheezing Gastrointestinal: Gastrointestinal: Denies abdominal pain, Denies diarrhea, Denies nausea and Denies vomiting Genitourinary: Genitourinary: Denies hematuria, Reports nocturia, Denies flank pain and Reports urinary incontinence Musculoskeletal: Musculoskeletal: Denies back pain [facility] Past Medical History Medical History (Updated 03/11/22 @ 15:21 by Misa Meza MD) Cardiomyopathy History of breast cancer History of gastroesophageal reflux (GERD) History of hyperlipidemia History of hypertension Non-ST elevated myocardial infarction (non-STEMI) PVCs (premature ventricular contractions) Surgical History Surgical History History of cholecystectomy Social History Social History Smoking status: Former smoker Tobacco type: cigarettes Additional smoking assessment comments: light smoker off and on for years; quit 4 years ago Alcohol intake: never Substance use: never Substance use type: does not use Spiritual care concerns: No Exam Const: General: alert Orientation/consciousness: patient oriented x3 Eyes: EOM: EOMs intact bilaterally Chest: Chest palpation & inspection: normal inspection of the chest Resp: Effort & Inspection: normal respiratory effort and no retractions Auscultation: clear to auscultation bilaterally Cardio: Rate: regular rate Rhythm: regular rhythm Heart sounds: no murmurs GI: GI Palp: Yes Soft to palpation, No Tenderness to palpation present (GI) and No Guarding due to palpation present (GI) Auscultation: normal bowel sounds Skin: Gen
[2022-03-11 13:31] LABS: Basophils Absolute Auto 0.1 K/mm3 (0.0-0.1); Basophils Percent Auto 0.6 % (0.2-1.2); Eosinophils Percent Auto 0.3 % (0-4.4); Hematocrit 42.8 % (37.0-47.0); Hemoglobin 14.8 g/dL (12.0-15.0); Immature Granulocyte Absolute 0.02 K/mm3 (0.00-0.031); Immature Granulocyte Percent A 0.2 % (0-0.5); Lymphocytes Absolute Auto 2.08 K/mm3 (0.9-3.2); Mean Corpuscular HGB Conc 34.6 g/dl (32-36); Mean Corpuscular Hemoglobin 32.5 pg (26-34); Mean Corpuscular Volume 94.1 fl (80-100); Mean Platelet Volume 10.2 fl (7.4-10.4); Monocytes Absolute Auto 0.8 K/mm3 (0.1-0.6); Monocytes Percent Auto 9.1 % (2.6-8.5); Neutrophils Absolute Auto 6.1 K/mm3 (1.3-6.7); Neutrophils Percent Auto 66.8 % (45.5-73.1); Platelet Count Result 199 k/mm3 (150-375); Red Blood Count 4.55 M/mm3 (4.2-5.4); Red Cell Distribution Width 13.4 % (11.5-14.5); White Blood Count 9.1 K/mm3 (4.5-10.0)
[2022-03-11 13:39] LABS: INR 1.2; Prothrombin Time 14.9 Seconds (11.1-14.7)
[2022-03-11 13:40] LABS: Alanine Aminotransferase 17 U/L (6-35); Albumin Level 3.8 g/dL (3.5-5.1); Alkaline Phosphatase 61 U/L (38-126); Anion Gap 7 mmol/L (8-16); Aspartate Amino Transferase 31 U/L (14-36); Bilirubin,Total 0.6 mg/dL (0.2-1.3); Blood Urea Nitrogen 16 mg/dL (7-17); Calcium 8.9 mg/dL (8.4-10.2); Carbon Dioxide 27 mmol/L (22-30); Chloride 105 mmol/L (98-107); Estimated CRCL calculation 59 ml/min; Estimated Glomerular Filt Rate > 60; Glucose 93 mg/dL (65-110); Magnesium 1.8 mg/dL (1.6-2.3); Partial Thromboplastin Time 29.6 SECONDS (22.3-36.8); Potassium 2.9 mmol/L (3.4-5.0); Sodium 139 mmol/L (137-145)
[2022-03-11 13:59] LABS: Troponin I 0.081 ng/mL (0.000-0.034)
[2022-03-11] MEDS: POTASSIUM CHLORIDE 20 MEQ TABLET 40 MEQ PO (14:48)
== END 2022-03-11 15:55 | disposition home or self-care (01) ==
PROVIDERS: Emergency Provider General Practice; PCP Family Medicine
DX: I42.9 Cardiomyopathy, unspecified (principal); I49.3 Ventricular premature depolarization; E87.6 Hypokalemia; I10 Essential (primary) hypertension; E78.5 Hyperlipidemia, unspecified; I25.2 Old myocardial infarction; K21.9 Gastro-esophageal reflux disease without esophagitis; Z85.3 Personal history of malignant neoplasm of breast; Z79.82 Long term (current) use of aspirin; Z87.891 Personal history of nicotine dependence; R00.8 Other abnormalities of heart beat; R94.31 Abnormal electrocardiogram [ECG] [EKG]; I44.0 Atrioventricular block, first degree
CPT/HCPCS: 36415; 51701; 80053; 81001; 83735; 84484; 85025; 85610; 85730; 93005; 99284; A9270

== ENCOUNTER 2022-04-06 09:40 | Outpatient (CLI) | payer MEDICARE, SELFPAY ==
--- NOTE | ~2022-04-06 | CT_ITS ---
EXAMINATION: CT abdomen pelvis wo con DATE: 04/06/2022 09:58 INDICATION: Microscopic hematuria. TECHNIQUE: Computed tomography (CT) of the abdomen and pelvis was performed without intravenous contr ast. Automated exposure control and iterative reconstruction technique were employed. The dose-length product was 244.83 mGy-cm. COMPARISON: CT abdomen and pelvis 10/29/2018, abdomen MRI 12/06/2018 FINDINGS: The visualized portions of the lung bases demonstrate mild atelectasis and chronic lung dis ease. No pleural effusion. The heart size is normal. There are coronary artery calcifications. No per icardial effusion. The liver is normal. There are changes of cholecystectomy. The spleen, pancreas, a drenal glands, and kidneys are normal. There is no urolithiasis. There is diverticulosis of the colon without evidence of diverticulitis. There are no dilated loops of bowel. The appendix is not visuali zed. There are no pathologically enlarged lymph nodes. There is no free intraperitoneal fluid. There is moderate thoracic spondylosis and mild lumbar spondylosis. IMPRESSION: 1. No etiology for hematuria. Reviewed, dictated and finalized at location B.
== END 2022-04-06 09:41 | disposition home or self-care (01) ==
LOC: ANHIMG 09:41
PROVIDERS: PCP Family Medicine; Visit Provider Family Medicine
DX: R31.29 Other microscopic hematuria (principal)
CPT/HCPCS: 74176

== ENCOUNTER 2023-07-03 12:26 | Outpatient (CLI) | payer MEDICARE, SELFPAY ==
--- NOTE | ~2023-07-03 | XR_ITS ---
XR knee LT min 4V 07/03/2023 13:05 Indication: Left knee pain Procedure: 4 views left knee Comparison: No prior studies for comparison. Findings: Moderate osteoarthritis of the left knee. There is a loose body anterior to the joint space . No fracture or traumatic malalignment. No joint effusion. Impression: 1: Moderate osteoarthritis of the left knee. Reviewed, dictated and finalized at location L. Impression: 1: Moderate osteoarthritis of the left knee.
== END 2023-07-03 12:27 | disposition home or self-care (01) ==
PROVIDERS: PCP Family Medicine; Visit Provider Physician Assistant
DX: M17.12 Unilateral primary osteoarthritis, left knee (principal); M25.562 Pain in left knee
CPT/HCPCS: 73564

== ENCOUNTER 2024-04-14 10:04 | Emergency (ER) | payer MEDICARE, SELFPAY ==
--- NOTE | ~2024-04-14 | XR_ITS ---
EXAMINATION: XR chest 2V DATE: 04/14/2024 12:17 INDICATION: Cough and weakness TECHNIQUE: PA and lateral views of the chest were obtained. COMPARISON: Chest radiograph dated 03/05/2022 FINDINGS: The lungs remain clear with no focal airspace opacities, pulmonary edema, pleural effusion or pneumot horax. The cardiomediastinal silhouette is normal. Cholecystectomy clips the gallbladder fossa. Multi ple additional surgical clips at the lateral right breast which appears slightly smaller than the lef t suggesting prior partial right mastectomy. IMPRESSION: 1. No acute cardiopulmonary disease. Reviewed, dictated and finalized at location B.
--- NOTE | ~2024-04-14 | CT_ITS ---
EXAMINATION: CT abdomen pelvis w con DATE: 04/14/2024 13:14 INDICATION: Right flank pain. TECHNIQUE: Computed tomography (CT) of the abdomen and pelvis was performed with 100 mL Omnipaque 350 intravenous contrast. Automated exposure control and iterative reconstruction technique were employe d. The dose-length product was 468.02 mGy-cm. COMPARISON: CT abdomen and pelvis 04/06/2022 FINDINGS: The visualized portions of the lung bases demonstrate mild atelectasis. There is honeycombi ng in right middle lobe. No pleural effusion. The heart size is normal. No pericardial effusion. The liver is normal. There are changes of cholecystectomy. The spleen, pancreas, and adrenal glands are n ormal. There is cortical thinning of the kidneys. There are cysts in the kidneys measuring up to 8 mm on the left. There is diverticulosis of the colon without evidence of diverticulitis. There are no d ilated loops of bowel. The appendix is not visualized. There is calcified atherosclerosis of the aort a and many of the other arteries. There are no pathologically enlarged lymph nodes. There is no free intraperitoneal fluid. There is moderate thoracic spondylosis and mild lumbar spondylosis. IMPRESSION: 1. No etiology for the patient's symptoms. Reviewed, dictated and finalized at location A.
[2024-04-14 10:06] VITALS: BP 194/94; PULSE 68; RESP 19; TEMP 36.1; O2SAT 100
[2024-04-14 11:39] VITALS: PULSE 74
--- NOTE | 2024-04-14 11:39 | ECG_ITS ---
Test Date: 2024-04-14 12:05:42 Measurements Intervals [place] Rate: 64 P: 53 CT: 185 QRS: -36 QRSD: 88 T: 73 QT: 391 QTc: 405 Interpretive Statements SINUS RHYTHM LEFT ANTERIOR SUPERIOR HEMIBLOCK NONSPECIFIC ST & T-WAVE ABNORMALITY ABNORMAL ECG No previous ECG available for comparison Electronically Signed On 04-14-2024 15:59:48 CDT by Robi Coombs M.D.
[2024-04-14 12:06] VITALS: BP 209/99; PULSE 68; RESP 16; O2SAT 94
[2024-04-14 12:10] LABS: Basophils Percent Auto 0.3 % (0.2-1.2); Eosinophils Percent Auto 0.1 % (0-4.4); Hematocrit 52.1 % (37.0-47.0); Hemoglobin 17.6 g/dL (12.0-15.0); Immature Granulocyte Absolute 0.05 K/mm3 (0.00-0.031); Immature Granulocyte Percent A 0.4 % (0-0.5); Lymphocytes Absolute Auto 2.02 K/mm3 (0.9-3.2); Lymphocytes Percent Auto 15.3 % (18.3-44.2); Mean Corpuscular HGB Conc 33.8 g/dl (32-36); Mean Corpuscular Hemoglobin 31.4 pg (26-34); Mean Platelet Volume 9.5 fl (7.4-10.4); Monocytes Absolute Auto 0.8 K/mm3 (0.1-0.6); Monocytes Percent Auto 6.3 % (2.6-8.5); Neutrophils Absolute Auto 10.3 K/mm3 (1.3-6.7); Neutrophils Percent Auto 77.6 % (45.5-73.1); Platelet Count Result 246 k/mm3 (150-375); Red Cell Distribution Width 13.1 % (11.5-14.5); White Blood Count 13.2 K/mm3 (4.5-10.0)
[2024-04-14 12:18] LABS: Appearance Urine Clear (Clear); Bacteria Urine 3+ /hpf; Bilirubin Urine Negative (Negative); Blood Urine 2+ (Negative); Color Urine Yellow (Yellow); Glucose Urine UA Negative (Negative); Ketones Urine 1+ mg/dL (Negative); Leukocyte Esterase Ur Trace LEU/UL (Negative); Nitrate Urine Negative (Negative); Protein Urine 1+ mg/dL (Negative); RBC Urine 21-50 /hpf (0-2); Specific Grav Ur 1.015 (1.001-1.035); Squamous Epithelial Cell Urine Few /hpf (Few); pH Urine 6.5 (5.0-9.0)
[2024-04-14 12:24] LABS: Alanine Aminotransferase 17 U/L (6-35); Albumin Level 5.2 g/dL (3.5-5.1); Alkaline Phosphatase 98 U/L (38-126); Anion Gap 14 mmol/L (4-12); Aspartate Amino Transferase 29 U/L (14-36); Bilirubin,Total 0.8 mg/dL (0.2-1.3); Blood Urea Nitrogen 18 mg/dL (7-17); Calcium 9.8 mg/dL (8.4-10.2); Carbon Dioxide 22 mmol/L (22-30); Chloride 103 mmol/L (98-107); Estimated CRCL calculation 50 ml/min; Estimated Glomerular Filt Rate > 60; Glucose 118 mg/dL (65-110); Potassium 3.9 mmol/L (3.4-5.0); Sodium 139 mmol/L (137-145)
[2024-04-14 12:31] VITALS: BP 178/93; PULSE 67; RESP 21; O2SAT 91
--- NOTE | 2024-04-14 12:38 | ED.GENADULT ---
HPI - General Adult General Chief complaint: Weakness Stated complaint: weakness, N/V, UTI symptoms Time Seen by Provider: 04/14/24 12:04 Source: patient, RN notes reviewed and old records reviewed Mode of arrival: ambulatory Limitations: no limitations History of Present Illness HPI narrative: This is a 68 year old female with history of hypertension who presents for evaluation of UTI. She reports starting on Sunday she thought she was developing symptoms of a UTI. She reports weakness, nausea and increased urinary frequency. She denies hematuria, fever, dysuria. She reports chronic back pain but her pain seems to be in her lower back and right side. She has some old cipro that she started taking on Sunday. She denies cough, chest pain, shortness of breath or vomiting. MD complaint: UTI, weakness Onset (ago): day(s) (4) Related Data Home Medications Medication Instructions Recorded Confirmed aspirin 81 mg tablet 81 mg PO DAILY 02/15/22 11/14/23 Allergies Allergy/AdvReac Type Severity Reaction Status Date / Time codeine Allergy Intermediate Unknown Verified 04/14/24 11:55 amoxicillin Allergy Mild Other Verified 04/14/24 11:55 erythromycin base Allergy Unknown Unknown Verified 04/14/24 11:55 clindamycin Allergy Gastrointestinal Verified 04/14/24 11:55 Upset Penicillins Allergy Difficulty Verified 04/14/24 11:55 Swallowing promethazine AdvReac Hallucinati Verified 04/14/24 11:55 ng sulfamethoxazole AdvReac Nausea Verified 04/14/24 11:55 [From Sulfamethoxazole-Trimethoprim] trimethoprim AdvReac Nausea Verified 04/14/24 11:55 [From Sulfamethoxazole-Trimethoprim] Review of Systems Constitutional: Constitutional: Reports fatigue and Reports weakness Cardiovascular: Cardiovascular: Denies syncope, Denies rapid heart rate, Denies irregular heart rhythm, Denies leg edema and Denies dyspnea Respiratory: Respiratory: Denies chest congestion, Denies hemoptysis, Denies excessive phlegm production and Denies dyspnea Gastrointestinal: Gastrointestinal: Reports abdominal pain, Denies hematochezia, Reports diarrhea, Reports nausea and Denies vomiting Genitourinary: Genitourinary: Denies hematuria, Reports nocturia, Denies dysuria and Reports flank pain Musculoskeletal: Musculoskeletal: Reports back pain, Denies joint swelling, Denies loss of height and Denies muscle weakness Neurologic: Denies syncope, Denies focal weakness and Denies weakness PMFSH Past Medical History Medical History Cardiomyopathy Diverticulosis Dyspepsia History of breast cancer History of NC (myocardial infarction) Hyperlipidemia, unspecified Hypertension Irritable bowel syndrome with constipation Peptic ulcer disease PVCs (premature ventricular contractions) Takotsubo syndrome Surgical History Surgical History History of ankle surgery ORIF X2 1989 History of cholecystectomy 1979 History of lumpectomy of right breast radiation treatments X33 1999 History of total abdominal hysterectomy and bilateral salpingo-oophorectomy 09/2023 History of uterosacral colpopexy 09/2023 Status post hardware removal ankle 1992 Family History Family History Father Acute myocardial infarction Heart disease Diabetes mellitus Grandparent Liver cancer Social History Social History Smoking status: Former smoker Tobacco type: cigarettes Additional smoking assessment comments: light smoker off and on for years; quit 4 years ago Alcohol intake: never Substance use: never Substance use type: does not use Do You Feel Safe in your Home?: Yes Lack of Transportation: No Lack of Food: Never True Current Housing: I Have Housing Concerned About Future Housing: No
[2024-04-14 12:47] VITALS: PULSE 63; RESP 20; O2SAT 90
[2024-04-14] MEDS: SODIUM CHLORIDE 0.9% IV 1,000 ML 999 ML IV CONT (13:00)
[2024-04-14] MEDS: ONDANSETRON INJ 4 MG/2 ML VIAL IV PUSH (13:00)
[2024-04-14 13:01] LABS: Add Urine Microscopic? YES
[2024-04-14 13:39] VITALS: BP 196/97; PULSE 72; RESP 20; O2SAT 94
== END 2024-04-14 14:45 | disposition home or self-care (01) ==
PROVIDERS: Emergency Medicine; Emergency Provider General Practice; PCP Family Medicine
DX: N39.0 Urinary tract infection, site not specified (principal); E86.0 Dehydration; I10 Essential (primary) hypertension; I25.2 Old myocardial infarction; E78.5 Hyperlipidemia, unspecified; K58.1 Irritable bowel syndrome with constipation; Z85.3 Personal history of malignant neoplasm of breast; Z87.11 Personal history of peptic ulcer disease; Z87.891 Personal history of nicotine dependence; Z90.49 Acquired absence of other specified parts of digestive tract; Z90.710 Acquired absence of both cervix and uterus; Z90.79 Acquired absence of other genital organ(s); Z90.722 Acquired absence of ovaries, bilateral; Z79.82 Long term (current) use of aspirin
CPT/HCPCS: 36415; 71046; 74177; 80053; 81001; 85025; 87086; 87088; 93005; 96360; 96374; 99284; J2405; J7030; Q9967

== ENCOUNTER 2024-09-17 11:42 | Outpatient (CLI) | payer MEDICARE, SELFPAY ==
[2024-09-17 13:21] LABS: Cholesterol 307 mg/dL (0-200); HDL Direct 104 mg/dL; Triglycerides 82 mg/dL (<150)
[2024-09-17 13:32] LABS: LDL Cholesterol Direct 146 mg/dL
== END 2024-09-17 11:43 | disposition home or self-care (01) ==
PROVIDERS: PCP Family Medicine; Visit Provider Internal Medicine Cardiovascular Disease
DX: E78.5 Hyperlipidemia, unspecified (principal)
CPT/HCPCS: 36415; 80061

== ENCOUNTER 2024-11-18 14:06 | Outpatient (CLI) | payer MEDICARE, SELFPAY ==
[2024-11-18 14:36] LABS: Hematocrit 44.3 % (37.0-47.0); Hemoglobin 14.6 g/dL (12.0-15.0); Mean Corpuscular Hemoglobin 31.6 pg (26-34); Mean Corpuscular Volume 95.9 fl (80-100); Platelet Count Result 241 k/mm3 (150-375); Red Blood Count 4.62 M/mm3 (4.2-5.4); Red Cell Distribution Width 13.1 % (11.5-14.5); White Blood Count 11.8 K/mm3 (4.5-10.0)
--- OUTSIDE RECORDS SUMMARY | 2024-11-18 14:44 | XMS_ITS | Clinical Summary ---
Author Organization [facility] Address [address] [place] [address] Care Team Providers Care Salvage Clerk Name Role Phone Adin Solo MD Primary Care Provider [phone] Allergies Active Allergy Reactions Criticality Noted Date Comments Amoxicillin Anaphylaxis High 07/21/2021 Codeine Joint pain Low 09/25/2023 Losartan Potassium Chest tightness Medium 09/25/2023 Nitrofurantoin Swelling Medium 07/17/2022 Throat tightness Penicillins Anaphylaxis High 05/16/2018 Promethazine Hallucinations Medium 09/25/2023 Udwgtjv-Hff-Qdz Reductase Inhibitors Muscle pain Medium 01/18/2023 Sulfamethoxazole Nausea only Low 07/21/2021 Medications multivit-minerals /ferrous fum (MULTI VITAMIN ORAL) Take by mouth every other day Active pantoprazole DR (PROTONIX) 40 mg EC tablet Take 1 tablet (40 mg total) by mouth 2 (two) times a day 0 Active aspirin 81 mg enteric coated tabletIndications :Myocardial Reinfarction Prevention,resume in 48 hours Take by mouth nightly Active docosahexanoic acid/epa (FISH OIL ORAL) Take 1,150 mg by mouth daily Active lysine 500 mg tablet 1 tablet (500 mg total) Active ketorolac (ACULAR) 0.5 % ophthalmic solution 1 drop 2 (two) times a day Active lisinopriL (PRINIVIL,ZESTRIL ) 20 mg tablet Take 1 tablet (20 mg total) by mouth 2 (two) times a day Evening dose if BP above 125/75 Active ondansetron (ZOFRAN) 4 mg tablet Take 1 tablet (4 mg total) by mouth every 8 (eight) hours as needed for nausea 3 Active apixaban (ELIQUIS) 5 mg tabletIndications :VTE Prophylaxis Take 1 tablet (5 mg total) by mouth 2 (two) times a day 60 tablet 2 4 Active Active Problems Problem Noted Date Diagnosed Date History of cardiac radiofrequency ablation (RFA) 07/08/2024 CAD (coronary artery disease) 06/09/2024 Prolapse of female pelvic organs 09/25/2023 Prolapsed, uterovaginal, incomplete 08/27/2023 Stress incontinence, female 08/27/2023 Pericarditis 08/01/2022 Takotsubo cardiomyopathy 08/01/2022 PVC (premature ventricular contraction) 11/20/19 Assessment & Plan (05/14/2024 8:53 PM CDT): Frequent symptomatic PVCs. With 14% burden as assessed in 2021. No recent quantitation. Very frequent in office today (bigeminy) with lifestyle-limiting symptoms. Occurring in context of prior Takotsubo cardiomyopathy. Discussed management options with patient, including continued conservative management (BB), AAD therapy, catheter ablation. Reviewed relative merits of each approach. She is interested in ablation. I reviewed procedural steps, risks/benefits, recovery, expected outcomes for PVC ablation in depth. She understands and wishes to proceed. --PVC ablation w/anesthesia, Stereotaxis support --Continue metoprolol, taper prior to procedure Former smoker 11/20/2019 Hyperlipidemia LDL goal <70 11/20/2019 Essential hypertension 11/20/2019 Chest tightness 11/20/2019 Hypokalemia 11/20/2019 Abnormal stress test 11/20/2019 Overview (11/20/2019): Added automatically from request for surgery [id number] Encounter for screening colonoscopy 08/30/2018 Overview (08/30/2018): Added automatically from request for surgery [id number] History of breast cancer 05/16/2018 Disorder of breast 11/09/2009 Encounters Date Type Department Care Team Description 09/15/2024 Telephone [facility] Cardiology [address] [place] [id number] Talat Ricci MD lab order from Last 3 Months Surgical History Surgery Date Site/Laterality Comments CHOLECYSTECTOMY 10/22/1978 - 10/21/1979 ANKLE FRACTURE SURGERY 10/22/1989 - 10/21/1990 TUBAL LIGATION 10/22/1978 - 10/21/1979 GLAUCOMA SURGERY 10/22/2006 - 10/21/2007 COLONOSCOPY BREAST LUMPECTOMY 10/22/1999 - 10/21/2000 Right BREAST BIOPSY 09/06/2021 Right Medical History Medical History Date Comments Arthritis Hypertension Hyperlipidemia Acid indigestion Glaucoma 2006 Peptic ulceration 1977 Cancer (CMS/HCC) (HCC) breast - radiation Abnormal stress test Nausea in adult Motion sickness History of radiation therapy 1999 Rt breast Breast cancer (HCC) 1999 Family History Medical History Relation Name Comments car accident Brother Diabetes Father Heart disease Father had pacemaker Liver cancer Maternal Grandmother olane accident Mother COPD Sister Breast cancer Neg Hx Relation Name Status Comments Brother (Age 22) Father (Age 70) Maternal Grandmother Mother (Age 39) Sister Alive Social History Tobacco Use Types Packs/Day Years Used Date Smoking Tobacco: Former Cigarettes Q uit: 11/20/2017 Smokeless Tobacco: Never Tobacco Cessation:Counseling Given: Not Answered Alcohol Use Standard Drinks/Week Comments Not Currently 0 (1 standard drink = 0.6 oz pur e alcohol) [facility] Utilities Answer Date Recorded In the past 12 months has [employer] electric, gas, oil, or water company threatened to shut off services in your home? No 06/10/2024 Social Connection and Isolat ion Panel [NHANES] Answer Date Recorded In a typical week, how many times do you talk on the phone with family, friends, or neighbors? More than three times a week 06/10/2024 How often do you get togethe r with friends or relatives? Twice a week 06/10/2024 How often do you attend chur ch or voodoo services? Never 06/10/2024 Do you belong to any clubs o r organizations such as orthodox groups, unions, fraternal or athletic groups, or school groups? No 06/10/2024 How often do you attend meet ings of the clubs or organizations you belong to? Never 06/10/2024 Are you , , di vorced, , never , or living with a partner? 06/10/2024 AUDIT-C Answer Date Recorded Q1: How often do you have a drink containing alcohol? Never 06/09/2024 Q2: How many drinks containi ng alcohol do you have on a typical day when you are drinking? Patient does not drink Frequency of Binge Drinking Not on file 05/22 Overall Financial Resource Strain (CARDIA) Answe r Date Recorded How hard is it for you to pa y for the very basics like food, housing, medical care, and heating? Not very hard 06/10/2024 Hunger Vital Sign Answer Date Recorded Within the past 12 months, y ou worried that your food would run out before you got the money to buy more. Never true 06/10/20 24 Within the past 12 months, t he food you bought just didn't last and you didn't have money to get more. Never true 06/10/2024 PRAPARE - Transportation Answer Date Re corded In the past 12 months, has l ack of transportation kept you from medical appointments or from getting medications? No 05/23 In the past 12 months, has l ack of transportation kept you from meetings, work, or from getting things needed for daily living? No 06/10/2024 Housing Stability Vital Sign Answer Darron e Recorded In the last 12 months, was t here a time when you were not able to pay the mortgage or rent on time? No 06/10/2024 In the past 12 months, how m any times have you moved where you were living? 0 06/10/2024 At any time in the past 12 m [facility], were you homeless or living in a prison (including now)? No 06/10/2024 Personal Safety Answer Date Recorded Have you ever been in or are you currently in a harmful physical or emotional relationship or is someone making you feel afraid or unsafe? Denies 06/09/2024 Comments No Sex and Gender Information Value Date Recorded Sex Assigned at Not on file Legal Sex Female 8:03 PM SERVICE DESK SPECIALIST Gender Identity Not on file Sexual Orientation Not on file Obstetrics History Para Term AB IAB SAB Ectopic Multiple Livin g Live Births 2 2 2 Date Outcome GA Total Labor Labor/2nd/3rd Weight Sex Type Anes PTL Anastasiya A1 A5 Name Clin Term Term Last Filed Vital Signs Vital Sign Reading Time Taken Comments Blood Pressure 120/60 08/05/2024 1:15 PM CDT Pulse 60 08/05/2024 12:41 PM CDT Temperature 36.6 ??C (97.8 ??F) 06/10/2024 8:10 AM CD T Respiratory Rate 18 06/10/2024 8:10 AM CDT Oxygen Saturation 99% 08/05/2024 12:41 PM CDT Inhaled Oxygen Concentration - - Weight 77.2 kg (170 lb 1.6 oz) 08/05/2024 12:41 PM CDT Height 162.6 cm (5' 4 ) 08/05/2024 12:41 PM CDT Body Mass Index 29.2 08/05/2024 12:41 PM CDT Plan of Treatment Health Maintenance Due Date Last Done Comments Colon Cancer Screening-Colonoscopy 1955 Depression Screening 1955 Hepatitis C Screening 1955 Osteoporosis Screening-Bone Density Scan 1953 DTaP/Tdap/Td Vaccine (1 - Tdap) 1964 Hepatitis B Screening 1971 Zoster Vaccine (1 of 2) 2003 Well Visit 65+ 2018 Pneumococcal vaccine 65+ (2 of 2 - PCV) 09/15/2020 09/15/2019 Influenza Vaccine (#1) 2024 9, 07/22/2017, 07/28/2014, Additional history exists Breast Cancer Screening-Mammogram 12/23/2024 12/24/2023, 08/17/2022, 08/15/2021, Additional history exists Fall Risk Assessment 06/10/2025 06/10/2024 Medical Devices Implanted Type Area Lift Driver Device Identifier Shelf Expiration Date Model / Serial / Lot marshallindex [employer] Inc Vascade Mvp 6-12fr Venous Closure [id number] - [id number] - [id number] Implanted:Qty: 1 on 06/09/2024 by Miguel Angel Shepherd III, MD at [facility] Collagen [employer] Inc 02/10/2026 800-612C- 10U / [id number] [id number] / [id number] Cardiva Medical Inc Vascade Mvp 6-12fr Venous Closure [id number] - [id number] - [id number] Implanted:Qty: 1 on 06/09/2024 by Miguel Angel Shepherd III, MD at [facility] Collagen [employer] Inc 02/10/2026 800-612C- 10U / [id number] [id number] / [id number] [id number] [employer] Inc Vascade Mvp 6-12fr Venous Closure [id number] - [id number] - [id number] Implanted:Qty: 1 on 06/09/2024 by Miguel Angel Shepherd III, MD at [facility] Collagen [employer] Inc 02/10/2026 800-612C- 10U / [id number] [id number] / [id number] [id number] Daig Vincent [id number] Device Closure Angio-Seal Vip Bondek-Plus Polyglyd L70 Cm Od6 Fr Odsec.035 In Vascular - [id number] Implanted:Qty: 1 on 11/28/2019 by Jer Mckeon MD at [facility] Daig Vincent/[employer] [id number] / / [employer] Vincent Upsylon 35.4cm Elongation Profile Lightweight Large Pore Low [id number] - [id number] Implanted:Qty: 1 on 09/25/2023 by Damián Cohen MD at [facility] Pelvis [employer] Vincent 06/21/2026 [id number] / / [id number] Viv[employer] Inc Sling Urinary Incontinence Female Stress Short Desara Blue Javier-Ds01bs - Sna - [id number] Implanted:Qty: 1 on 09/25/2023 by Damián Cohen MD at [facility] Pelvis [employer] 05/21/2026 JAVIER-DS01B S / NA / [id number] Procedures Procedure Name Priority Date/Time Associated Diagnosis Comments LIPID PANEL Routine 09/17/2024 Hyperlipidemia LDL goal <70 SCREENING MAMMOGRAM BILATERAL W ALEXANDER Schedule Routine, Read Routine (OP Routine) 12/24/2023 3:50 PM SERVICE DESK SPECIALIST Screening mammogram, encounter for from Last 3 Months or Most Recently Relevant to Health Maintenance Results * Lipid panel (09/17/2024) SCRIBED Cholesterol, Total 307 <200 EXTERNAL LAB SCRIBED HDL 104 >40 EXTERNAL LAB SCRIBED LDL 146 <100 EXTERNAL LAB SCRIBED Triglycerides 82 <150 EXTERNAL LAB Blood 09/17/2024 us Talat Ricci MD LAB BLOOD ORDERABLES Adrienne myers Result EXTERNAL LAB * Screening Mammogram Bilateral W Alexander (12/24/2023 3:50 PM SERVICE DESK SPECIALIST) Anatomical Region Laterality Modality Breast Bilateral Mammography Impressions 12/24/2023 3:59 PM SERVICE DESK SPECIALIST BI-RADS?? ATLAS category (overall): 2 - Benign There is no mammographic evidence of malignancy. A 1 year screening mammogram is recommended. The patient has been or will be contacted. We recommend annual screening mammography for women at average risk of breast cancer beginning at age 40, based on guidelines of the [place] [employer] (ACR Practice Parameter for the Performance of Screening and Diagnostic Mammography) and [place] [employer]. For women with and elevated risk of breast cancer, please refer to the ACR Practice Parameter for specific screening recommendations. The patient will be entered into a reminder system with a target due date of 1 year for her next screening exam. Narrative 12/24/2023 3:59 PM SERVICE DESK SPECIALIST Screening Mammogram Bilateral W Alexander: 12/24/23 The study was acquired using full field digital technology and interpreted from soft copy. 2D digital mammographic views, as well as 3D digital tomosynthesis were performed in the CC and MLO projections. CLINICAL: ??Screening mammogram, encounter for. ??Medical history includes breast cancer and radiation therapy. ??History of breast cancer in Neg Hx. COMPARISONS: 08/17/2022 Screening Mammogram Bilateral W Alexander 12/06/2021 Diagnostic Mammogram Right W Alexander 08/19/2021 Diagnostic Mammogram 2D Right 08/15/2021 Screening Mammogram Bilateral W Alexander 12/31/2019 Screening Mammogram Bilateral W [place] 05/16/2018 Screening Mammogram Bilateral W Alexander BREAST TISSUE: The breasts have scattered areas of fibroglandular density. FINDINGS: There are stable post operative changes in the right breast. A biopsy marker clip is unchanged in the right breast. There is no new suspicious finding in either breast on mammogram. ?? Adin Solo MD IMG MAMMO PROCEDURES Final Re sult from Last 3 Months or Most Recently Relevant to Health Maintenance Insurance MEDICARE [facility] Address: [id number] [place] [address] COMMERCIAL [facility] MEDICARE COMMERCIAL GENERIC MEDICARE [facility] FINANCIAL Advance Directives For more information, please contact: [phone] Documents on File Type Date Recorded Patient Channel Sales Manager Expl anation ADVANCE DIRECTIVE 06/10/2024 4:57 PM POWER OF CHIEF [employer] DIV[employer]-MEDICAL * Full Code (Latest Code Status on File) Date Activated Date Inactivated Comments 09/25/2023 3:50 PM 09/26/2023 7:54 PM Care Teams Salvage Clerk Relationship Specialty Start Date End Date Adin Solo MD [address] [place] [id number] PCP - General 12/09/19
--- OUTSIDE RECORDS SUMMARY | 2024-11-18 14:44 | XMS_ITS | Referral Summary ---
Author Organization [facility] Address [address] [place] [address] Care Team Providers Care Prison Officer Name Role Phone Adin Solo MD Primary Care Provider Encounters Date Type Department Care Team Description 09/15/2024 Telephone [facility] Medical [facility] Cardiology [address] [place] [address] Talat Ricci MD lab order from Last 3 Months Allergies Active Allergy Reactions Criticality Noted Date Comments Amoxicillin Anaphylaxis High 07/21/2021 Codeine Joint pain Low 09/25/2023 Losartan Potassium Chest tightness Medium 09/25/2023 Nitrofurantoin Swelling Medium 07/17/2022 Throat tightness Penicillins Anaphylaxis High 05/16/2018 Promethazine Hallucinations Medium 09/25/2023 Asxutsr-Dvg-Jjn Reductase Inhibitors Muscle pain Medium 01/18/2023 Sulfamethoxazole [...] (11/20/2019): Added automatically from request for surgery [id number] Encounter for screening colonoscopy 08/30/2018 Overview (08/30/2018): Added automatically from request for surgery [id number] History of breast cancer 05/16/2018 Disorder of breast 11/09/2009 Social History Tobacco Use Types Packs/Day Years Used Date Smoking Tobacco: Former Cigarettes Q uit: 11/20/2017 Smokeless Tobacco: Never Tobacco Cessation:Counseling Given: Not Answered Alcohol Use Standard Drinks/Week Comments Not Currently 0 (1 standard drink = 0.6 oz pur e alcohol) [facility] Utilities Answer Date Recorded In the past 12 months has e [employer], gas, oil, or water [employer] threatened to shut off services in your [...] often do you attend chur ch or scientologist services? Never 06/10/2024 Do you belong to any clubs o r organizations such as congregational groups, unions, fraternal or athletic groups, or [...] any time in the past 12 m [facility], were you homeless or living in a long term (including now)? No 06/10/2024 Personal Safety Answer Date Recorded Have you ever been in or are you currently in a harmful physical or emotional relationship or is someone making you feel afraid or unsafe? Denies 06/09/2024 Comments No Sex and Gender Information Value Date Recorded Sex Assigned at Not on file Legal Sex Female 8:03 PM WASTEWATER TECHNICIAN Gender Identity Not on file Sexual Orientation Not on file Last Filed Vital Signs Vital Sign Reading [...] 08/05/2024 12:41 PM CDT Plan of Treatment Not on file Medical Devices Implanted Type Area Director Dance Device Identifier Shelf Expiration Date Model / Serial / Lot [employer] Medical Inc Vascade Mvp 6-12fr Venous Closure [id number] - [id number] - [id number] Implanted:Qty: 1 on 06/09/2024 by Miguel Angel Shepherd III, MD at [facility] Collagen [employer] Medical Inc 02/10/2026 800-612C- 10U / [id number] / [id number] Cardiva Medical Inc Vascade Mvp 6-12fr Venous Closure [id number] - [id number] - [id number] Implanted:Qty: 1 on 06/09/2024 by Miguel Angel Shepherd III, MD at [facility] Collagen [employer] Inc 02/10/2026 800-612C- 10U / [id number] [id number] / [id number] [id number] Cardiva Medical Inc Vascade Mvp 6-12fr Venous Closure [id number] - [id number] - [id number] Implanted:Qty: 1 on 06/09/2024 by Miguel Angel Shepherd III, MD at [facility] Collagen [employer] Inc 02/10/2026 800-612C- 10U / [id number] [id number] / [id number] Daig Vincent [id number] Device Closure Angio-Seal Vip Bondek-Plus Polyglyd L70 Cm Od6 Fr Odsec.035 In Vascular - [id number] Implanted:Qty: 1 on 11/28/2019 by Jer Mckeon MD at [facility] Daig Vincent/[employer] [id number] / / [place] [employer] Vincent Upsylon 35.4cm Elongation Profile Lightweight Large Pore Low [id number] - [id number] Implanted:Qty: 1 on 09/25/2023 by Damián Cohen MD at [facility] Pelvis [place] [employer] Vincent 06/21/2026 [id number] / / [id number] Viviana [employer] Inc Sling Urinary Incontinence Female Stress Short Desara Blue Javier-Ds01bs - Sna - [id number] Implanted:Qty: 1 on 09/25/2023 by Damián Cohen MD at [facility] Pelvis [employer] 05/21/2026 JAVIER-DS01B S / NA / [id number] Procedures Procedure Name Priority Date/Time Associated Diagnosis Comments LIPID PANEL Routine 09/17/2024 Hyperlipidemia LDL goal <70 SCREENING MAMMOGRAM BILATERAL W ALEXANDER Schedule Routine, Read Routine (OP Routine) 12/24/2023 3:50 PM WASTEWATER TECHNICIAN Screening mammogram, encounter for from Last 3 [...] Mammogram Bilateral W Alexander (12/24/2023 3:50 PM WASTEWATER TECHNICIAN) Anatomical Region Laterality Modality Breast Bilateral Mammography Impressions 12/24/2023 3:59 PM WASTEWATER TECHNICIAN BI-RADS?? ATLAS category (overall): 2 - Benign There is no mammographic evidence of malignancy. A 1 year screening mammogram is recommended. The patient has been or will be contacted. We recommend annual screening mammography for women at average risk of breast cancer beginning at age 40, based on guidelines of the [place] [employer] (ACR Practice Parameter for the Performance of Screening and Diagnostic Mammography) and [place] [employer]nec[employer]. For women with and elevated risk of breast cancer, please refer to the ACR Practice Parameter for specific screening recommendations. The patient will be entered into a reminder system with a target due date of 1 year for her next screening exam. Narrative 12/24/2023 3:59 PM WASTEWATER TECHNICIAN Screening Mammogram Bilateral W Alexander: 12/24/23 The [...] W Alexander 12/31/2019 Screening Mammogram Bilateral W Alexander 05/16/2018 Screening Mammogram Bilateral W Alexander BREAST [...] Recently Relevant to Health Maintenance Insurance MEDICARE COMMERCIAL GENERIC MEDICARE COMMERCIAL GENERIC MEDICARE [employer] Advance Directives For more information, please contact: [phone] Documents on File Type Date Recorded Patient Extension Work Instructor Expl anation ADVANCE DIRECTIVE 06/10/2024 4:57 PM POWER OF OCEANOGRAPHER GEOLOGICAL-MEDICAL * Full Code (Latest Code Status on File) Date Activated Date Inactivated Comments 09/25/2023 3:50 PM 09/26/2023 7:54 PM Care Teams Prison Officer Relationship Specialty Start Date End Date Adin Solo MD [address] [place] [address] [id number] PCP - General 12/09/19
[2024-11-18 14:50] LABS: Alanine Aminotransferase 18 U/L (6-35); Albumin Level 4.5 g/dL (3.5-5.1); Alkaline Phosphatase 84 U/L (38-126); Amylase 123 U/L (30-110); Anion Gap 10 mmol/L (4-12); Aspartate Amino Transferase 27 U/L (14-36); Bilirubin,Total 0.5 mg/dL (0.2-1.3); Blood Urea Nitrogen 25 mg/dL (7-17); Calcium 9.6 mg/dL (8.4-10.2); Carbon Dioxide 24 mmol/L (22-30); Chloride 103 mmol/L (98-107); Estimated Glomerular Filt Rate 57; Glucose 108 mg/dL (65-110); Lipase 104 U/L (23-300); Potassium 4.5 mmol/L (3.4-5.0); Sodium 137 mmol/L (137-145)
== END 2024-11-18 14:07 | disposition home or self-care (01) ==
LOC: ANHLAB 14:07
PROVIDERS: PCP Family Medicine; Visit Provider Nurse Practitioner
DX: K58.1 Irritable bowel syndrome with constipation (principal); K21.9 Gastro-esophageal reflux disease without esophagitis
CPT/HCPCS: 36415; 80053; 82150; 83690; 85027

== ENCOUNTER 2025-02-18 07:58 | Outpatient (CLI) | payer MEDICARE, SELFPAY ==
--- NOTE | ~2025-02-18 | CT_ITS ---
CT of the Abdomen and Pelvis: Indication: Abdominal bloating, nausea Technique: 2.5 mm axial scans were obtained through the abdomen and pelvis following intravenous adm inistration of 100 cc of Omnipaque 350. Dose reduction technique was used on this scan by utilizing a utomated exposure control and iterative reconstruction technique. The dose-length product (DLP) was 6 41.26 mGy-cm. COMPARISON: 04/14/2024 Findings: Scans through the lung bases there is a partially imaged opacity in the right middle lobe, possibly related to chronic scarring or atelectasis.. Mild intrahepatic and extra hepatic biliary dilatation is present, similar to prior exam, probably re lated to prior cholecystectomy. The spleen, pancreas, adrenals and kidneys are within normal limits. There are atherosclerotic calcifications of the aorta. No lymphadenopathy. No bowel obstruction or bowel wall thickening. There is no evidence to suggest acute appendicitis. Images through the pelvis were performed. Urinary bladder unremarkable. No pelvic mass seen. No ascit es. Impression: No acute abnormality seen. Chronic findings, as above. Reviewed, dictated and finalized at location . Impression: No acute abnormality seen. Chronic findings, as above.
--- OUTSIDE RECORDS SUMMARY | 2025-02-18 08:05 | XMS_ITS | Clinical Summary ---
Author Organization [facility] Address [address] [place] [address] Care Team Providers Care Paper Baler Name Role Phone Adin Solo MD Primary Care Provider [phone] Allergies Active Allergy Reactions Criticality Noted Date Comments Amoxicillin Anaphylaxis High 07/21/2021 Codeine Joint pain Low 09/25/2023 Losartan Potassium Chest tightness Medium 09/25/2023 Nitrofurantoin Swelling Medium 07/17/2022 Throat tightness Penicillins Anaphylaxis High 05/16/2018 Promethazine Hallucinations Medium 09/25/2023 Xlpmpgp-Dju-Ltm Reductase Inhibitors Muscle pain Medium 01/18/2023 Sulfamethoxazole [...] a day 60 tablet 2 4 Active amLODIPine (NORVASC) 5 mg tabletIndications :hypertension Take 1 tablet (5 mg total) by mouth daily 90 tablet 3 5 02/18/20 26 Active Active Problems Problem Noted Date Diagnosed [...] (11/20/2019): Added automatically from request for surgery [id number] Encounter for screening colonoscopy 08/30/2018 Overview (08/30/2018): Added automatically from request for surgery [id number] History of breast cancer 05/16/2018 Disorder of breast 11/09/2009 Encounters Date Type Department Care Team Description 02/05/2025 Telephone [facility] Medical Group Cardiology [address] [place] [address] Talat Ricci MD from Last 3 Months Surgical History Surgery Date Site/Laterality Comments CHOLECYSTECTOMY 10/22/1978 - 10/21/1979 ANKLE FRACTURE SURGERY 10/22/1989 - 10/21/1990 TUBAL LIGATION 10/22/1978 - 10/21/1979 GLAUCOMA SURGERY 10/22/2006 - 10/21/2007 COLONOSCOPY BREAST LUMPECTOMY 10/22/1999 - 10/21/2000 Right BREAST BIOPSY 09/06/2021 Right Medical History Medical History Date Comments Arthritis Hypertension Hyperlipidemia Acid indigestion Glaucoma 2006 Peptic ulceration 1977 Cancer (HCC) breast - radiati on Abnormal stress test Nausea in adult Motion sickness History of radiation therapy 1999 Rt breast Breast cancer (HCC) 2000 Family History Medical History Relation Name Comments [...] drink = 0.6 oz pur e alcohol) [facility] Utilities Answer Date Recorded In the past 12 months has [employer], gas, oil, or water [employer] threatened to shut off services in your [...] 06/10/2024 How often do you attend chur or baptist services? Never 06/10/2024 Do you belong to any clubs o r organizations such as religious groups, unions, fraternal or athletic groups, or [...] any time in the past [address] [facility], were you homeless or living in a halfway (including now)? No 06/10/2024 Personal Safety Answer Date Recorded Have you ever been in or are you currently in a harmful physical or emotional relationship or is someone making you feel afraid or unsafe? Denies 06/09/2024 Comments No Sex and Gender Information Value Date Recorded Sex Assigned at Not on file Legal Sex Female 8:03 PM FRONT OFFICE HELP Gender Identity Not on file Sexual Orientation [...] 58 08/05/2024 12:41 PM CDT Temperature 36.6 C (97.8 F) 06/10/2024 8:10 AM CDT Respiratory Rate 18 06/10/2024 8:10 AM CDT [...] (2 of 2 - PCV) 09/15/2020 09/15/2019 Breast Cancer Screening-Mammogram 12/23/2024 12/24/2023, 08/17/2022, 08/15/2021, Additional history exists Fall Risk Assessment 06/10/2025 06/10/2024 Influenza Vaccine (Season Ended) 2025 08/17/2019, 07/22/2017, 07/28/2014, Additional history exists Medical Devices Implanted Type Area Orchid Superintendent Device Identifier Shelf Expiration Date Model / Serial / Lot [employer] Vascade Mvp 6-12fr Venous Closure [id number] - [id number] - [id number] Implanted:Qty: 1 on 06/09/2024 by Miguel Angel Shepherd III, MD at [facility] [employer] Inc 02/10/2026 800-612C- 10U / [id number] / [id number] [employer] Vascade Mvp 6-12fr Venous Closure [id number] - [id number] - [id number] Implanted:Qty: 1 on 06/09/2024 by Miguel Angel Shepherd III, MD at [facility] [employer]agen [employer] 02/10/2026 800-612C- 10U / [id number] / [id number] [employer] Vascade Mvp 6-12fr Venous Closure [id number] - [id number] - [id number] Implanted:Qty: 1 on 06/09/2024 by Miguel Angel Shepherd III, MD at [facility] Collagen [employer] 02/10/2026 800-612C- 10U / [id number] / [id number] Daig Vincent [id number] Device Closure Angio-Seal Vip Bondek-Plus Polyglyd L70 Cm Od6 Fr Odsec.035 In Vascular - [id number] Implanted:Qty: 1 on 11/28/2019 by Jer Mckeon MD at [facility] Daig Vincent/[employer] [id number] / / [employer] Vincent Upsylon 35.4cm Elongation Profile Lightweight Large Pore Low [id number] - [id number] Implanted:Qty: 1 on 09/25/2023 by Damián Cohen MD at [facility] Pelvis [employer] Vincent 06/21/2026 [id number] / / [id number] [employer] Sling Urinary Incontinence Female Stress Short Desara Blue Javier-Ds01bs - Sna - [id number] Implanted:Qty: 1 on 09/25/2023 by Damián Cohen MD at [facility] Pelvis [employer] 05/21/2026 JAVIER-DS01B S / NA / [id number] Procedures Procedure Name Priority Date/Time Associated Diagnosis Comments SCREENING MAMMOGRAM BILATERAL W ALEXANDER Schedule Routine, Read Routine (OP Routine) 12/24/2023 3:50 PM FRONT OFFICE HELP Screening mammogram, encounter for from Last 3 Months or Most Recently Relevant to Health Maintenance Results * Screening Mammogram Bilateral W Alexander (12/24/2023 3:50 PM FRONT OFFICE HELP) Anatomical Region Laterality Modality Breast Bilateral Mammography Impressions 12/24/2023 3:59 PM FRONT OFFICE HELP BI-RADS ATLAS category (overall): 2 - Benign There is no mammographic evidence of malignancy. A 1 year screening mammogram is recommended. The patient has been or will be contacted. We recommend annual screening mammography for women at average risk of breast cancer beginning at age 40, based on guidelines of the [employer] (ACR Practice Parameter for the Performance of Screening and Diagnostic Mammography) and [employer]nec[employer]. For women with and elevated risk of breast cancer, please refer to the ACR Practice Parameter for specific screening recommendations. The patient will be entered into a reminder system with a target due date of 1 year for her next screening exam. Narrative 12/24/2023 3:59 PM FRONT OFFICE HELP Screening Mammogram Bilateral W Alexander: 12/24/23 The study was acquired using full field digital technology and interpreted from soft copy. 2D digital mammographic views, as well as 3D digital tomosynthesis were performed in the CC and MLO projections. CLINICAL: Screening mammogram, encounter for. Medical history includes breast cancer and radiation therapy. History of breast cancer in Neg Hx. COMPARISONS: [...] suspicious finding in either breast on mammogram. Adin Solo MD IMG MAMMO PROCEDURES Final Re sult from Last 3 Months or Most Recently Relevant to Health Maintenance Insurance COMMERCIAL GENERIC MEDICARE COMMERCIAL GENERIC MEDICARE [facility] Advance Directives For more information, please contact: [phone] Documents on File Type Date Recorded Patient Campaign Analyst Expl anation ADVANCE DIRECTIVE 06/10/2024 4:57 PM POWER OF STOCKFEED MILLER-MEDICAL * Full Code (Latest Code Status on File) Date Activated Date Inactivated Comments 09/25/2023 3:50 PM 09/26/2023 7:54 PM Care Teams Paper Baler Relationship Specialty Start Date End Date Adin Solo MD [address] [place] [id number] PCP - General 12/09/19
--- OUTSIDE RECORDS SUMMARY | 2025-02-18 08:05 | XMS_ITS | Referral Summary ---
Author Organization [facility] Address [address] [place] [address] Care Team Providers Care Market Maker Name Role Phone Adin Solo MD Primary Care Provider [phone] Encounters Date Type Department Care Team Description 02/05/2025 Telephone [facility] Medical Group Cardiology [address] [place] [address] Talat Ricci MD from Last 3 Months Allergies Active Allergy Reactions Criticality Noted Date Comments Amoxicillin Anaphylaxis High 07/21/2021 Codeine Joint pain Low 09/25/2023 Losartan Potassium Chest tightness Medium 09/25/2023 Nitrofurantoin Swelling Medium 07/17/2022 Throat tightness Penicillins Anaphylaxis High 05/16/2018 Promethazine Hallucinations Medium 09/25/2023 Zdsnhoc-Knq-Add Reductase Inhibitors Muscle pain Medium 01/18/2023 Sulfamethoxazole [...] (11/20/2019): Added automatically from request for surgery [id number] Encounter for screening colonoscopy 08/30/2018 Overview (08/30/2018): Added automatically from request for surgery [id number] History of breast cancer 05/16/2018 Disorder of breast 11/09/2009 Social History Tobacco Use Types Packs/Day Years Used Date Smoking Tobacco: Former Cigarettes Q uit: 11/20/2017 Smokeless Tobacco: Never Tobacco Cessation:Counseling Given: Not Answered Alcohol Use Standard Drinks/Week Comments Not Currently 0 (1 standard drink = 0.6 oz pur e alcohol) [facility] Utilities Answer Date Recorded In the past 12 months has e electric, gas, oil, or water company threatened [...] often do you attend chur ch or synagogue services? Never 06/10/2024 Do you belong to any clubs o r organizations such as gnosticism groups, unions, fraternal or athletic groups, or [...] any time in the past 12 m [facility], were you homeless or living in a mcfp (including now)? No 06/10/2024 Personal Safety Answer Date Recorded Have you ever been in or are you currently in a harmful physical or emotional relationship or is someone making you feel afraid or unsafe? Denies 06/09/2024 Comments No Sex and Gender Information Value Date Recorded Sex Assigned at Not on file Legal Sex Female 8:03 PM MAP MOUNTER Gender Identity Not on file Sexual Orientation [...] on file Medical Devices Implanted Type Area Seaming Inspector Device Identifier Shelf Expiration Date Model / Serial / Lot [employer] Vascade Mvp 6-12fr Venous Closure [id number] - [id number] - [id number] Implanted:Qty: 1 on 06/09/2024 by Miguel Angel Shepherd III, MD at [facility] Collagen [employer] 02/10/2026 800-612C- 10U / [id number] [id number] / [id number] [employer] Vascade Mvp 6-12fr Venous Closure [id number] - [id number] - [id number] Implanted:Qty: 1 on 06/09/2024 by Miguel Angel Shepherd III, MD at [facility] Coll[employer] 02/10/2026 800-612C- 10U / [id number] [id number] / [id number] [employer] Inc Vascade Mvp 6-12fr Venous Closure [id number] - [id number] - [id number] Implanted:Qty: 1 on 06/09/2024 by Miguel Angel Shepherd III, MD at [facility] Coll[employer] 02/10/2026 800-612C- 10U / [id number] [id number] / [id number] [id number] [employer] [id number] Device Closure Angio-Seal Vip Bondek-Plus Polyglyd L70 Cm Od6 Fr Odsec.035 In Vascular - [id number] Implanted:Qty: 1 on 11/28/2019 by Jer Mckeon MD at [facility] Daig Vincent/[employer] [id number] / / [employer] Vincent Upsylon 35.4cm Elongation Profile Lightweight Large Pore Low [id number] - [id number] Implanted:Qty: 1 on 09/25/2023 by Damián Cohen MD at [facility] Pelvis [employer] Vincent 06/21/2026 [id number] / / [id number] [employer] Inc Sling Urinary Incontinence Female Stress Short Desara Blue Javier-Ds01bs - Sna - [id number] Implanted:Qty: 1 on 09/25/2023 by Damián Cohen MD at [facility] Pelvis [employer] 05/21/2026 JAVIER-DS01B S / NA / [id number] Procedures Procedure Name Priority Date/Time Associated Diagnosis Comments SCREENING MAMMOGRAM BILATERAL W ALEXANDER Schedule Routine, Read Routine (OP Routine) 12/24/2023 3:50 PM MAP MOUNTER Screening mammogram, encounter for from Last 3 Months or Most Recently Relevant to Health Maintenance Results * Screening Mammogram Bilateral W Alexander (12/24/2023 3:50 PM MAP MOUNTER) Anatomical Region Laterality Modality Breast Bilateral Mammography Impressions 12/24/2023 3:59 PM MAP MOUNTER BI-RADS ATLAS category (overall): 2 - Benign There is no mammographic evidence of malignancy. A 1 year screening mammogram is recommended. The patient has been or will be contacted. We recommend annual screening mammography for women at average risk of breast cancer beginning at age 40, based on guidelines of the [place] [employer] (ACR Practice Parameter for the Performance of Screening and Diagnostic Mammography) and [place] [employer]nec[employer]. For women with and elevated risk of breast cancer, please refer to the ACR Practice Parameter for specific screening recommendations. The patient will be entered into a reminder system with a target due date of 1 year for her next screening exam. Narrative 12/24/2023 3:59 PM MAP MOUNTER Screening Mammogram Bilateral W Alexander: 12/24/23 The [...] MEDICARE COMMERCIAL GENERIC MEDICARE COMMERCIAL GENERIC MEDICARE [facility] FINANCIAL Advance Directives For more information, please contact: [phone] Documents on File Type Date Recorded Patient Air Analysis Engineering Technician Expl anation ADVANCE DIRECTIVE 06/10/2024 4:57 PM POWER OF COURTESY CLERK-MEDICAL * Full Code (Latest Code Status on File) Date Activated Date Inactivated Comments 09/25/2023 3:50 PM 09/26/2023 7:54 PM Care Teams Market Maker Relationship Specialty Start Date End Date Adin Solo MD [address] [place] [id number] PCP - General 12/09/19
--- OUTSIDE RECORDS SUMMARY | 2025-02-18 08:05 | XMS_ITS | Encounter Summary ---
Author Organization [facility] Healthcare Address [address] [place] [address] Care Team Providers Care Non Profit Director Name Role Phone Adin Solo MD Primary Care Provider [phone] Encounter Details Date Type Department Care Team (Late st Contact Info) Description 02/05/2025 Telephone [facility] Medical Group Cardiology [address] [facility] [[email or web address] [address] [place] [address] Gil Ricci MD [address] [address] Social History Tobacco Use Types Packs/Day Years Used Date Smoking Tobacco: Former Cigarettes Q uit: 11/20/2017 Smokeless Tobacco: Never Alcohol Use Standard Drinks/Week Comments Not Currently 0 (1 standard drink = 0.6 oz pur e alcohol) [facility] Utilities Answer Date Recorded In the past 12 months has [employer], gas, oil, or water [employer] threatened to shut off services in your [...] How often do you attend chur or yazidism services? Never 06/10/2024 Do you belong to any clubs o r organizations such as nondenominational groups, unions, fraternal or athletic groups, or [...] any time in the past [address] [facility], were you homeless or living in a alf (including now)? No 06/10/2024 Personal Safety Answer Date Recorded Have you ever been in or are you currently in a harmful physical or emotional relationship or is someone making you feel afraid or unsafe? Denies 06/09/2024 Comments No Sex and Gender Information Value Date Recorded Sex Assigned at Not on file Legal Sex Female 8:03 PM DISH CARRIER Gender Identity Not on file Sexual Orientation Not on file documented as of this encounter Ordered Prescriptions Prescription Sig Dispense Quantity Refills Last Filled Start Date End Date amLODIPine (NORVASC) 5 mg tabletIndications: hypertension Take 1 tablet (5 mg total) by mouth daily 90 tablet 3 02/17/2025 02/17/2026 documented in this encounter Miscellaneous Notes * Addendum Note - Gil Macias RN - 02/17/2025 12:20 PM CDTAddended by: GIL MACIAS on: 02/17/2025 12:20 PM Modules accepted: Orders * Telephone Encounter - Gil Macias RN - 02/17/2025 12:15 PM CDT Spoke with pt. Note from [facility] reviewed. Pt verbalizes understanding. Rx sent to pt preferred pharmacy. Pt will continue BP log and bring with her to her 03/03 appt. MAF-Add amlodipine 5 mg daily. She should continue to check her blood pressure and report back in 2weeks * Telephone Encounter - Gil Macias RN - 02/16/2025 10:16 AM CDT [facility] please advise. Thanks! * Telephone Encounter - Yolanda Herrera - 02/16/2025 9:28 AM CDT Pt calling to report BP readings. Pt took meds at 7 am every morning and around 4 pm every evening.Reports slight headache, nauseas, and shaky and weak legs. 02/05- 5 pm- 171/91 HR 66 02/06- 10 am- 159/77 HR 61, 6 pm- 175/87 HR 57 02/07- 9 am- 190/110 HR 56, 9:05 am- 185/94, 6:10 pm- 192/96 HR 54 02/08- 8:35 am- 220/100, 10 am- 141/79 HR 58, 5:30 pm- 174/87 HR 56 02/09- 8:45 am- 185/97 HR 59, 6 pm- 178/94 HR 54 02/10- 9:30 am- 165/92 HR 63, 6:35 pm- 161/80 HR 59 02/11- 9 am- 167/90 HR 63, 7:15 pm- 174/73 HR 56 02/12- 6:25 pm- 192/97 HR 65 02/13- 11:30 am- 135/75 HR 63, 5:30 pm- 165/91 HR 60 02/14- 10:15 am- 190/94 HR 50 02/15- 9 am- 186/91 HR 53, 6:15 pm- 168/107 HR 57 02/16- 8:30 am- 184/96 HR 51, 8:35 am- 200/90 HR 50 Cb: [phone] * Telephone Encounter - Gil Macias RN - 02/05/2025 11:39 AM CDT Spoke with pt. Pt reports feeling weak and shaky at ortho appointment yesterday. Pt states that this has happened 5-6 times over the last few months. Pt also reporting BP readings both in and out of normal range at various times. Pt has appt with [facility] on 02/10, advised pt address concerns at that appt as well. Advised pt to keep BP log with measurement 1-2 hours following morning and evening dose of lisinopril for most accurate information needed to make adjustments to medications if necessary. Pt will call back in 1 week with those readings, and will forward to [facility] at that time if necessary. * Telephone Encounter - Chantel Robertson - 02/05/2025 9:43 AM CDT Pt requesting a call back to discuss some symptoms she has been having. Yesterday she went to [facility] and when she was walking across the parking lot she started to feel weak and shaky. The knee said that it wasn't an issue with her knee. So she is concerned that something else is wrong. Shesaid that sometimes she gets nauseous as well. She has been checking her BP and it has been high lately. On 01/31 is was at 154/79, 02/01 it was 134/61, 02/02 it was 152/83, and on 02/04 it was 171/98. She has the highest it has been was back in December it was 22/107. Please advise pt thinks it might have something to do with the lisinopriL (PRINIVIL,ZESTRIL) 20 mg she takes. Thank you Contact: documented in this encounter Plan of Treatment Not on file documented as of this encounter Visit Diagnoses Diagnosis Essential hypertension- Primary Unspecified essential hypertension documented in this encounter Care Teams Non Profit Director Relationship Specialty Start Date End Date Adin Solo MD [address] [place] [id number] PCP - General 12/09/19 documented as of this encounter
--- OUTSIDE RECORDS SUMMARY | 2025-02-18 08:05 | XMS_ITS | Clinical Summary ---
Author Organization [facility] Darlene chappell [facility] Address [address] [facility] [place] [address] Care Team Providers Care Media Associate Name Role Phone Unavailable Primary Care Provider Unavailabl e Social History Tobacco Use Types Packs/Day Years Used Date Smoking Tobacco: Never Assessed Comments Unknown Sex and Gender Information Value Date Recorded Sex Assigned at Not on file Legal Sex Female 3:04 PM BLOOD BANK CUSTODIAN Gender Identity Not on file Sexual Orientation Not on file Plan of Treatment Upcoming Encounters Date Type Department Care Team (Late st Contact Info) Description 03/24/2025 1:30 PM CDT Office Visit [facility] Oncology and Hematology - [address] [facility] [address] [place] [address] Jorje Burns MD [address] [facility] [address] [place] [address] Health Maintenance Due Date Last Done Comments DTAP/TDAP/TD VACCINES (1 - Tdap) 1972 BREAST CANCER SCREENING 1993 COLORECTAL SCREENING 1998 Colorectal Cancer Screening 1998 FIT-DNA Q 3 years 1998 FIT/FOBT Q 1 year 1998 Flex Sig/CT Colonography Q 5 years 1998 PNEUMOCOCCAL VACCINE 50+ YEARS (1 of 1 - PCV) 05/09/20 03 ZOSTER VACCINE (1 of 2) 2003 OSTEOPOROSIS SCREENING 2018 INFLUENZA VACCINE (#1) 2024 RSV VACCINE (60+ or ) (1 - 1-dose 75+ series) 2028 Insurance MEDICARE PART A AND B
[2025-02-18 08:37] LABS: Estimated Glomerular Filt Rate > 60
== END 2025-02-18 07:59 | disposition home or self-care (01) ==
PROVIDERS: PCP Family Medicine; Visit Provider Nurse Practitioner
DX: R11.0 Nausea (principal); R10.13 Epigastric pain
CPT/HCPCS: 74177; Q9967

== ENCOUNTER 2025-03-24 15:41 | Outpatient (CLI) | payer MEDICARE, SELFPAY ==
--- OUTSIDE RECORDS SUMMARY | 2025-03-24 15:46 | XMS_ITS | Encounter Summary ---
Author Organization [facility] Healthcare Address [address] [place] [address] Care Team Providers Care Day Care Home Provider Name Role Phone Adin Solo MD Primary Care Provider [phone] Encounter Details Date Type Department Care Team (Late st Contact Info) Description 03/20/2025 Telephone [facility] Medical Group Cardiology [address] [facility] [address] [place] [address] Talat Ricci MD [address] [address] Social History Tobacco Use Types Packs/Day Years Used Date Smoking Tobacco: Former Cigarettes Q uit: 11/20/2017 Smokeless Tobacco: Never Alcohol Use Standard Drinks/Week Comments Not Currently 0 (1 standard drink = 0.6 oz pur e alcohol) [facility] Utilities Answer Date Recorded In the past 12 months has [employer], gas, oil, or water [employer] threatened to shut off services in your [...] How often do you attend chur or anabaptism services? Never 06/10/2024 Do you belong to any clubs o r organizations such as restoration groups, unions, fraternal or athletic groups, or [...] any time in the past 12 m [facility], were you homeless or living in a jail (including now)? No 06/10/2024 Personal Safety Answer Date Recorded Have you ever been in or are you currently in a harmful physical or emotional relationship or is someone making you feel afraid or unsafe? Denies 03/11/2025 Comments No Sex and Gender Information Value Date Recorded Sex Assigned at Not on file Legal Sex Female 8:03 PM PRINT DECORATOR Gender Identity Not on file Sexual Orientation Not on file documented as of this encounter Miscellaneous Notes * Telephone Encounter - Juaquin Keller RN - 03/20/2025 11:42 AM CDT Called pt LMOV, reviewed recommendations, advised pt to call back with questions or concerns. * Telephone Encounter - Juaquin Keller RN - 03/20/2025 10:08 AM CDT Pt concerned about amlodipine causing symptoms 4-5 days after starting it. She's been on it for about 3 weeks-1 month and states her lips feel almost a little swollen from the inside. Her tongue feels fine, the roof of her mouth feels a little numb (not swollen), feels like the skin is raw on her upper lip like she's going to get a fever blister. She confirms there is no visible swelling. She reports this is consistent daily, although she takes amlodipine every night around 7 p.m.. and notices symptoms are worse around 2-4 a.m. then feels symptoms improve a little as the day goes on. Discussed lisinopril with pt, pt states she does have itching on both sides of her neck going down since starting lisinopril, but tolerates lisinopril fine and does not think her symptoms are from Lisinopril, thinks they are from amlodipine since symptoms started 4-5 days after starting amlodipine. Informed pt if she ever develops visible swelling of tongue, lips, throat or has difficulty swallowing etc to call 911 or go to ED. Otherwise, will see if dr. Ricci has recommendations. Please advise. * Telephone Encounter - David Herreranca - 03/20/2025 9:06 AM CDT Pt states she is having a reaction to Amlodipine. States her tongue, lips, and roof of mouth feel swollen. States it might also be messing with her eyes but she does have eye issues already. Contact: documented in this encounter Plan of Treatment Not on file documented as of this encounter Visit Diagnoses Not on filedocumented in this encounter Care Teams Day Care Home Provider Relationship Specialty Start Date End Date Adin Solo MD [address] [place] [id number] PCP - General 12/09/19 documented as of this encounter
--- OUTSIDE RECORDS SUMMARY | 2025-03-24 15:46 | XMS_ITS | Encounter Summary ---
Author Organization [facility] Address [address] [place] [address] Care Team Providers Care Piano Mechanic Name Role Phone Adin Solo MD Primary Care Provider [phone] Reason for Referral * Laboratory Services (Routine) - Open Specialty Diagnoses / Procedures Referred By Kirstin gomez Referred To Contact Diagnoses Erythrocytosis Procedures JAK2 MUTATION Jorje Burns MD [address] [place] [id number] Phone: tel: fax: Referral ID Status Reason Start Date Expiration Date Visits Re quested Visits Authorized [id number] Open 03/24/2025 04/24/2026 1 1 Reason for Visit * Reason Comments Establish Care Encounter Details Date Type Department Care Team (Late st Contact Info) Description 03/24/2025 1:30 PM CDT Office Visit [facility] Oncology and Hematology - [facility] [address] [place] [address] Jorje Burns MD [address] [place] [address] Erythrocytosis (Primary Dx) Social History Tobacco Use Types Packs/Day Years Used Date Smoking Tobacco: Never Smokeless Tobacco: Never Alcohol Use Standard Drinks/Week Comments Never 0 (1 standard drink = 0.6 oz pur e alcohol) Comments Unknown Sex and Gender Information Value Date Recorded Sex Assigned at Not on file 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 Gender Identity Not on file Sexual Orientation Not on file documented as of this encounter Last Filed Vital Signs Vital Sign Reading Time Taken Comments Blood Pressure 166/95 03/24/2025 1:52 PM CDT Pulse 67 03/24/2025 1:49 PM CDT Temperature 36.4 C (97.6 F) 03/24/2025 1:49 PM CDT Respiratory Rate 15 03/24/2025 1:49 PM CDT Oxygen Saturation 92% 03/24/2025 1:49 PM CDT Inhaled Oxygen Concentration - - Weight 74.6 kg (164 lb 6.4 oz) 03/24/2025 1:49 P M CDT Height 162.6 cm (5' 4) 03/24/2025 1:49 PM CDT Body Mass Index 28.22 03/24/2025 1:49 PM CDT documented in this encounter Progress Notes * Jorje Burns MD - 03/24/2025 2:16 PM CDT Hematology-oncology consult Note Requesting Physician Adin Solo MD Primary Care Physician Adin Solo MD Problem list There is no problem list on file for this patient. Previous TREATMENT ? Measurable Disease ? Reason for Visit Francisca Boucher is a 69 y.o. female who was referred for consultation for erythrocytosis. History of present illness This is a pleasant 69-year-old female with history of hypertension, IBS and pericarditis referred to me for elevated hemoglobin. Patient denies any history of COPD. She denies any history of sleep apnea. Denies any recent weight changes. She is not taking any hormones. Patient quit smoking 13 years ago but only used to smoke the remaining of the cigarette. She denies any historyof blood clots including stroke and heart attack. Her labs from April 2024 showed hemoglobin of 15.6with hematocrit of 46.8. Previously in March 2024 she had a hematocrit of 52.1. She is taking baby aspirin. Denies any other new complaints. Past Medical History Past Medical History: Diagnosis Date Chronic apical periodontitis Hyperlipidemia Hypertension Surgical History Past Surgical History: Procedure Laterality Date HX BREAST LUMPECTOMY FOR CANCER 1999 HX CHOLECYSTECTOMY 1984 HX HEART SURGERY Elbasion 2023 HX HYSTERECTOMY 2022 Medications Current Outpatient Medications Medication Sig Dispense Refill dicyclomine (BENTYL) 10 mg capsule Take 10 mg by mouth. ondansetron (ZOFRAN ODT) 4 mg Tablet, Rapid Dissolve Take 1 Tablet by mouth 3 times daily. RABEprazole (ACIPHEX) 20 mg Tablet, Delayed Release (E.C.) Take 20 mg by mouth 2 times daily. lisinopriL (PRINIVIL) 20 mg tablet Take 20 mg by mouth 2 times daily. No current facility-administered medications for this visit. Allergies Allergies Allergen Reactions Losartan Potassium Anaphylaxis Penicillins Anaphylaxis Promethazine Hallucination Amlodipine Unknown Clindamycin Nausea and Vomiting Codeine Muscle Pain Sulfamethoxazole Nausea and Vomiting Immunizations: There is no immunization history on file for this patient. Family History Family History Problem Relation Name Age of Onset Heart Disease Father Diabetes Father Pancreatic Cancer Sister Colon Cancer Sister No Known Problems Child No Known Problems Child Social History Social History Tobacco Use Smoking status: Never Smokeless tobacco: Never Substance Use Topics Alcohol use: Never Review of Systems Constitutional: Patient did not mention fever; no night sweats; no anorexia; no weight loss; no fatique NEENT: Patient did not mention headache; no change in vision; no change in hearing; no sore throat;no dysphagia Respiratory: Patient did not mention shortness of breath; no pleuritic chest pain; no cough; no hemoptysis Cardiac: Patient did not mention cardiac-like chest pain; no palpitations; no orthopnea; no PND; noDOE Breasts: Patient did not mention tenderness; no masses GI: Patient did not mention abdominal pain; no nausea; no vomiting; no diarrhea; no hematochezia; no melena : Patient did not mention dysuria; no frequency; no hesitancy; no hematuria DELIVERY REP: Musculosketetal: Patient did not mention bone pain; no arthralgia; no joint swelling; no myalgia; Skin: Patient did not mention pruritis; no rash; no petechiae; no ecchymoses Endocrine: Patient did not mention polydipsia; no polyuria; no unusual weight gain Neuro: Patient did not mention headache; no change in vision; no sensory changes; no muscle weakness; no confusion; no seizures Psych: Patient did not mention anxiety; no depression; Physical Exam Vitals: As per nursing note Constitutional: Well developed, well nourished, no acute distress, non-toxic appearance Teeth and gum. No signs of infection or swelling. Eyes: PERRL, conjunctiva normal HEENT: Atraumatic, external ears normal, nose normal, oropharynx moist, no pharyngeal exudates. no sinus tenderness Neck- normal range of motion, no tenderness, supple Respiratory: No respiratory distress, normal breath sounds, no rales, no wheezing Cardiovascular: Normal rate, normal rhythm, no murmurs, no gallops, no rubs GI: Soft, nondistended, normal bowel sounds, nontender, no splenomegaly, no hepatomegaly, no mass, no rebound, no guarding : No costovertebral angle tenderness Musculoskeletal: No edema, no tenderness, no deformities. Back- no tenderness Integument: Well hydrated, no rash, Digits and nails inspection normal Lymphatic: No lymphadenopathy noted Neurologic: Alert & oriented x 3, CN 2-12 normal, normal motor function, normal sensory function, no focal deficits noted Psychiatric: Speech and behavior appropriate ? labs No results found for this or any previous visit (from the past 24 hours). Labs from March 2024 showed WBC 13.2 hemoglobin 17.6 hematocrit 52.1 platelet 246,000 Pathology ? Imaging & Other Studies Performance Status? Assessment / Plan: ? Erythrocytosis.. Patient is a pleasant 69-year-old slightly obese female with history of hypertension, irritable bowel syndrome and pericarditis referred to me for erythrocytosis. She denies any history of COPD. She used to smoke cigarettes until 13 years ago but only smoked for very short time. She denies any history of sleep apnea. Denies any use of hormones. No recent weight gain. There is no family history of blood disorders. She denies any history of thromboembolic events including stroke and heart attack. I discussed the differential diagnosis of erythrocytosis with the patient. At this time we will order workup that will include CBC, CMP, erythropoietin level and JAK2 mutation. She is already taking baby aspirin. Based on the left we will decide about phlebotomy. I have answered all the questions to patient's satisfaction. Follow- up in 2 weeks. GERD. Patient is on Aciphex. Hypertension. She is on lisinopril. Irritable bowel syndrome. Patient is on Bentyl. Thank you very much for allowing me to participate in Franciscadaryl Boucher's evaluation and management. Please feel free to contact if I can be of any further assistance in your patient???s care requiringhematology or oncology evaluation. Sincerely, ? ? Jorje Burns M.D. cell TOBACCO COUNSELING She is not a tobacco/nicotine user. Jorje Burns MD ,03/24/2025 2:49 PM ? Total time spent 60 minutes, two third of the total time spent counseling patient [id number]. CC:?Adin Solo MD documented in this encounter Plan of Treatment Upcoming Encounters Date Type Department Care Team (Late st Contact Info) Description 04/07/2025 4:30 PM CDT Telephone Check Up [facility] Oncology and Hematology - Bj [address] [facility] [address] [place] [address] Jorje Burns MD [address] [facility] [address] [place] [address] Scheduled Orders Name Type Priority Associated Diagnoses Orde r Schedule CBC WITH DIFFERENTIAL Lab Stat Erythrocytosis Expected: 03/24/2025, Expires: 03/24/2026 COMPREHENSIVE METABOLIC PANEL Lab Stat Erythrocytosis Expected: 03/24/2025, Expires: 03/24/2026 ERYTHROPOIETIN LEVEL Lab Routine Erythrocytosis Expected: 03/24/2025, Expires: 03/24/2026 JAK2 MUTATION Lab Routine Erythrocytosis Expected: 03/24/2025, Expires: 03/24/2026 documented as of this encounter Visit Diagnoses Diagnosis Erythrocytosis- Primary Reserved for inherently not codable concepts WITHOUT codable children documented in this encounter Care Teams Piano Mechanic Relationship Specialty Start Date End Date Adin Solo MD [address] [place] [phone] PCP - General Family Practice 03/24/25 documented as of this encounter
--- OUTSIDE RECORDS SUMMARY | 2025-03-24 15:46 | XMS_ITS | Clinical Summary ---
Author Organization [facility] Darlene [facility]ell [facility] Address [address] [place] [address] Care Team Providers Care Lot Associate Name Role Phone Adin Solo MD Primary Care Provider [phone] Allergies Active Allergy Reactions Criticality Noted Date Comments Amlodipine Unknown 03/24/2025 Clindamycin Nausea and Vomiting Low 03/24/2025 Codeine Muscle Pain Low 09/25/2023 Losartan Potassium Anaphylaxis High 09/25/2023 Penicillins Anaphylaxis High 05/16/2018 Promethazine Hallucination Medium 09/25/2023 Sulfamethoxazole Nausea and Vomiting Low 07/21/2021 Medications dicyclomine (BENTYL) 10 mg capsule Take 10 mg by mouth. 01/19/2025 Active lisinopriL (PRINIVIL) 20 mg tablet Take 20 mg by mouth 2 times daily. Active ondansetron (ZOFRAN ODT) 4 mg Tablet, Rapid Dissolve Take 1 Tablet by mouth 3 times daily. 12/18/2024 Active RABEprazole (ACIPHEX) 20 mg Tablet, Delayed Release (E.C.) Take 20 mg by mouth 2 times daily. 01/22/2025 Active Active Problems No known active problems Encounters Date Type Department Care Team Description 03/24/2025 1:30 PM CDT Office Visit [facility] Oncology and Hematology - Bj [address] [place] [address] [place] [address] Jorje Burns MD Erythrocytosis (Primary Dx) from Last 3 Months Family History Medical History Relation Name Comments No Known Problems Child 1 No Known Problems Child 2 Diabetes Father Heart Disease Father Pancreatic Cancer Sister 1 Colon Cancer Sister 2 Relation Name Status Comments Child 1 Alive Child 2 Alive Father Mother Sister 1 Alive Sister 2 Alive Social History Tobacco Use Types Packs/Day Years Used Date Smoking Tobacco: Never Smokeless Tobacco: Never Alcohol Use Standard Drinks/Week Comments Never 0 (1 standard drink = 0.6 oz pur e alcohol) Comments Unknown Sex and Gender Information Value Date Recorded Sex Assigned at Not on file 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 [address] [facility] [address] [place] [address] Jorje Burns MD [address] [facility] [address] [place] [address] Health Maintenance Due Date Last Done Comments DTAP/TDAP/TD VACCINES (1 - Tdap) 1972 Traditional Medicare (ACO) A nnual Wellness Visit 1972 COLORECTAL SCREENING 1998 Colorectal Cancer Screening 1998 FIT-DNA Q 3 years 1998 FIT/FOBT Q 1 year 1998 Flex Sig/CT Colonography Q 5 years 1998 PNEUMOCOCCAL VACCINE 50+ YEA RS (1 of 1 - PCV) 2003 ZOSTER VACCINE (1 of 2) 2003 OSTEOPOROSIS SCREENING 2018 INFLUENZA VACCINE (#1) 2024 BREAST CANCER SCREENING 02/25/2026 02/26/20, 02/25/2025, 12/24/2023, Additional history exists RSV VACCINE (60+ or ) (1 - 1-dose 75+ series) 2028 Insurance MEDICARE PART A AND B [employer] Care Teams Lot Associate Relationship Specialty Start Date End Date Adin Solo MD [address] [place] [phone] PCP - General Family Practice 03/24/25
--- OUTSIDE RECORDS SUMMARY | 2025-03-24 15:47 | XMS_ITS | Clinical Summary ---
Author Organization [facility] Address [address] [place] [address] Care Team Providers Care Vocational Rehabilitation Specialist Name Role Phone Adin Solo MD Primary Care Provider [phone] Allergies Active Allergy Reactions Criticality Noted Date Comments Amoxicillin Anaphylaxis High 07/21/2021 Codeine Joint pain Low 09/25/2023 Losartan Potassium Chest tightness Medium 09/25/2023 Nitrofurantoin Swelling Medium 07/17/2022 Throat tightness Penicillins Anaphylaxis High 05/16/2018 Promethazine Hallucinations Medium 09/25/2023 Dkbgdbs-Ksn-Ogp Reductase Inhibitors Muscle pain Medium 01/18/2023 Sulfamethoxazole Nausea only Low 07/21/2021 Medications multivit-mineral s/ferrous fum (MULTI VITAMIN ORAL) Take by mouth every other day Active aspirin 81 mg enteric coated tabletIndication s:Myocardial Reinfarction Prevention,resum e in 48 hours Take by mouth nightly Active docosahexanoic acid/epa (FISH OIL ORAL) Take 1,150 mg by mouth daily Active lysine 500 mg tablet 1 tablet (500 mg total) Active ketorolac (ACULAR) 0.5 % ophthalmic solution 1 drop 2 (two) times a day Active lisinopriL (PRINIVIL,ZESTRI L) 20 mg tablet Take 1 tablet (20 mg total) by mouth 2 (two) times a day Evening dose if BP above 125/75 Active ondansetron (ZOFRAN) 4 mg tablet Take 1 tablet (4 mg total) by mouth every 8 (eight) hours as needed for nausea 08/05/20 23 Active apixaban (ELIQUIS) 5 mg tabletIndication s:VTE Prophylaxis Take 1 tablet (5 mg total) by mouth 2 (two) times a day 60 tablet 2 06/10/20 24 Active Additional Information Patient not taking.Reported on 03/17/2025 amLODIPine (NORVASC) 5 mg tabletIndication s:hypertension Take 1 tablet (5 mg total) by mouth daily 90 tablet 3 02/18/[address] (ACIPHEX) 20 mg EC tablet Take 1 tablet (20 mg total) by mouth 2 (two) times a day 01/23/[address] (PROTONIX) 40 mg EC tablet Take 1 tablet (40 mg total) by mouth 2 (two) times a day 11/08/19 20 025 Discontin ued(Alter nessa therapy) Active Problems Problem Noted Date Diagnosed Date Murmur, heart 03/03/2025 History of cardiac radiofrequency ablation (RFA) 07/08/2024 [...] (11/20/2019): Added automatically from request for surgery [id number] Encounter for screening colonoscopy 08/30/2018 Overview (08/30/2018): Added automatically from request for surgery [id number] History of breast cancer 05/16/2018 Disorder of breast 11/09/2009 Encounters Date Type Department Care Team Description 03/20/2025 Telephone [facility] Cardiology [address] [place] [address] Talat Ricci MD 03/17/2025 1:45 PM CDT Office Visit [facility] [address] [facility] [address] [address] Romina Ann NP PVC (premature ventricular contraction) (Primary Dx); History of cardiac radiofrequency ablation (RFA) 03/11/2025 1:00 PM CDT Infusion [facility] Non-Oncology Infusion [address] [place] [phone] Coronary artery disease involving [place] heart without angina pectoris, unspecified vessel or lesion type (Primary Dx); Hyperlipidemia LDL goal <70 03/04/2025 Documentation [facility] Non-Oncology Infusion [address] [place] [address] Tigist Houston RN 03/03/2025 2:00 PM CDT Office Visit [facility] Medical [facility] Cardiology [address] [place] [address] Talat Ricci MD Murmur, heart (Primary Dx); Coronary artery disease involving [place] coronary artery of [place] heart without angina pectoris; Essential hypertension; PVC (premature ventricular contraction); Takotsubo cardiomyopathy; Hyperlipidemia LDL goal <70 03/03/2025 Orders Only [facility] Non-Oncology Infusion [address] [place] [address] Talat Ricci MD Hyperlipidemia LDL goal <70 (Primary Dx); Coronary artery disease involving [place] heart without angina pectoris, unspecified vessel or lesion type 03/03/2025 Telephone [facility] Cardiology [address] [place] [address] Talat Ricci MD 02/25/2025 11:36 AM CDT - 02/25/2025 11:59 PM CDT Hospital Encounter [facility] Medical Office Bl 1 Breast [facility] [address] [place] [address] Screening mammogram, encounter for Discharge Disposition: Discharge to home or self care 02/05/2025 Telephone [facility] Cardiology [address] [place] [address] Talat Ricci MD from Last 3 Months Surgical History Surgery Date Site/Laterality Comments CHOLECYSTECTOMY 10/22/1978 - 10/21/1979 ANKLE FRACTURE SURGERY 10/22/1989 - 10/21/1990 TUBAL LIGATION 10/22/1978 - 10/21/1979 GLAUCOMA SURGERY 10/22/2006 - 10/21/2007 COLONOSCOPY BREAST LUMPECTOMY 10/22/1999 - 10/21/2000 Right BREAST BIOPSY 09/06/2021 Right Medical History Medical History Date Comments Arthritis Hypertension Hyperlipidemia Acid indigestion Glaucoma 2007 Peptic ulceration 1977 Cancer (HCC) breast - radiati on Abnormal stress test Nausea in adult Motion sickness History of radiation therapy 2000 Rt breast Breast cancer (HCC) 2000 Family [...] oz pur e alcohol) [facility] Utilities Answer Date Recorded In [...] often do you attend chur ch or shinto services? 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 Gender Identity Not on file Sexual Orientation Not on file Obstetrics History Para Term AB IAB SAB Ectopic Multiple Livin g Live Births 2 2 2 Date Outcome GA Total Labor Labor/2nd/3rd Weight Sex Type Anes PTL Anastasiya A1 A5 Name Clin Term Term Last Filed Vital Signs Vital Sign Reading Time Taken Comments Blood Pressure 144/84 03/17/2025 1:43 PM CDT Pulse 80 03/17/2025 1:43 PM CDT Temperature 36.2 C (97.2 F) 03/11/2025 12:30 PM CDT Respiratory Rate 17 03/11/2025 12:30 PM CDT Oxygen Saturation 95% 03/11/2025 12:30 PM CDT Inhaled Oxygen Concentration - - Weight 76.2 kg (168 lb) 03/17/2025 1:43 PM CDT Height 162.6 cm (5' 4) 03/17/2025 1:43 PM CDT Body Mass Index 28.84 03/17/2025 1:43 PM CDT Plan of Treatment Health Maintenance Due Date Last Done Comments Colon Cancer Screening-Colonoscopy 1955 Depression Screening 1953 Hepatitis C Screening 1953 Osteoporosis Screening-Bone Density Scan 1953 DTaP/Tdap/Td Vaccine (1 - Tdap) 1964 Hepatitis B Screening 1971 Zoster Vaccine (1 of 2) 2003 Well Visit 65+ 2018 Pneumococcal vaccine 65+ (2 of 2 - PCV) 09/15/2020 09/15/2019 Influenza Vaccine (Season Ended) 2025 08/17/2019, 07/22/2017, 07/28/2014, Additional history exists Breast Cancer Screening-Mammogram 02/25/2026 02/25/2025, 12/24/2023, 08/17/2022, Additional history exists Fall Risk Assessment 03/11/2026 03/11/2025 Medical Devices Implanted Type Area Undergraduate Intern Device Identifier Shelf Expiration Date Model / Serial / Lot [employer] Vascade Mvp 6-12fr Venous Closure [id number] - [id number] - [id number] Implanted:Qty: 1 on 06/09/2024 by Miguel Angel Shepherd III, MD at [facility] Collagen [employer] Inc 02/10/2026 800-612C- 10U / [id number] / [id number] [employer] Vascade Mvp 6-12fr Venous Closure [id number] - [id number] - [id number] Implanted:Qty: 1 on 06/09/2024 by Miguel Angel Shepherd III, MD at [facility] Collagen [employer] 02/10/2026 800-612C- 10U / [id number] / [id number] [employer] Vascade Mvp 6-12fr Venous Closure [id number] - [id number] - [id number] Implanted:Qty: 1 on 06/09/2024 by Miguel Angel Shepherd III, MD at [facility] Collagen [employer] 02/10/2026 800-612C- 10U / [id number] / [id number] Daig Vincent [id number] Device Closure Angio-Seal Vip Bondek-Plus Polyglyd L70 Cm Od6 Fr Odsec.035 In Vascular - [id number] Implanted:Qty: 1 on 11/28/2019 by Jer Mckeon MD at [facility] Daig Vincent[employer] [id number] / / [employer] Vincent Upsylon 35.4cm Elongation Profile Lightweight Large Pore Low [id number] - [id number] Implanted:Qty: 1 on 09/25/2023 by Damián Cohen MD at [facility] Pelvis [employer] Vincent 06/21/2026 [id number] / / [id number] [employer] Sling Urinary Incontinence Female Stress Short Desara Blue Javier-Ds01bs - Sna - [id number] Implanted:Qty: 1 on 09/25/2023 by Damián Cohen MD at [facility] Pelvis [employer] 05/21/2026 JAVIER-DS01B S / NA / [id number] Procedures Procedure Name Priority Date/Time Associated Diagnosis Comments ECG 12-LEAD Routine 03/17/2025 1:53 PM CDT PVC (premature ventricular contraction) POCT LIPID PANEL Routine 03/03/2025 2:09 PM CDT Coronary artery disease involving [place] coronary artery of [place] heart without angina pectoris Hyperlipidemia LDL goal <70 SCREENING MAMMOGRAM BILATERAL W ALEXANDER Schedule Routine, Read Routine (OP Routine) 02/25/2025 11:59 AM CDT Screening mammogram, encounter for from Last 3 Months Results * ECG 12 lead (03/17/2025 1:53 PM CDT) Romina Ann TIRE INSTALLER ECG ORDERABLES Adrienne l Result * (ABNORMAL) POCT lipid panel (03/03/2025 2:09 PM CDT) Cholesterol, POC 362 <200 MG/DL HDL, POC 83 >=40 mg/dL Triglycerides, POC 97 <=149 mg/dL LDL Cholesterol POC 259(A) <=129 mg/dL Chol/HDL Ratio, POC 3.1 NONE Non-HDL Cholesterol, POC 279 NONE mg/dL Cholesterol Total, POC 362(A) 30 - 199 mg/dL Capillary blood 03/03/2025 2 :09 PM CDT Talat Ricci MD POINT OF CARE TEST ORDERA BLES Final Result * Screening Mammogram Bilateral W Alexander (02/25/2025 11:59 AM CDT) Anatomical Region Laterality Modality Breast Bilateral Mammography Impressions 02/25/2025 12:33 PM CDT BI-RADS ATLAS category (overall): 2 - Benign There is no mammographic evidence of malignancy. A 1 year screening mammogram is recommended. The patient has been or will be contacted. We recommend annual screening mammography for women at average risk of breast cancer beginning at age 40, based on guidelines of the [place] [employer] (ACR Practice Parameter for the Performance of Screening and Diagnostic Mammography) and [place] [employer]. For women with and elevated risk of breast cancer, please refer to the ACR Practice Parameter for specific screening recommendations. The patient will be entered into a reminder system with a target due date of 1 year for her next screening exam. Narrative 02/25/2025 12:33 PM CDT Screening Mammogram Bilateral W Alexander: 02/25/25 The study was acquired using full field digital technology and interpreted from soft copy. 2D digital mammographic views, as well as 3D digital tomosynthesis were performed in the CC and MLO projections. CLINICAL: Screening mammogram, encounter for. Medical history includes breast cancer and radiation therapy. History of breast cancer in Neg Hx. COMPARISONS: 12/24/2023 Screening Mammogram Bilateral W Alexander 08/17/2022 Screening Mammogram Bilateral W Alexander 12/06/2021 Diagnostic Mammogram Right W Alexander 09/06/2021 Stereotactic Breast Biopsy Right 08/19/2021 Diagnostic Mammogram 2D Right 08/15/2021 Screening Mammogram Bilateral W Alexander 05/16/2018 Screening Mammogram Bilateral W Alexander BREAST TISSUE: There are scattered areas of fibroglandular density. FINDINGS: There are stable post operative changes in the right breast. A biopsy marker clip is unchanged in the right breast. There is no new suspicious finding in either breast on mammogram. 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
--- OUTSIDE RECORDS SUMMARY | 2025-03-24 15:47 | XMS_ITS | Referral Summary ---
Author Organization [facility] Address [address] [place] [address] Care Team Providers Care Burlap Bag Sewer Name Role Phone Adin Solo MD Primary Care Provider [phone] Encounters Date Type Department Care Team Description 03/20/[address] [facility] Medical Group Cardiology [address] [address] [address] [place] [address] Talat Ricci MD 03/17/2025 1:45 PM CDT Office Visit [facility] [address] [facility] [address], [place] [address] Romina Ann NP PVC (premature ventricular contraction) (Primary Dx); History of cardiac radiofrequency ablation (RFA) 03/11/2025 1:00 PM CDT Infusion [facility] Non-Oncology Infusion [address] [place] [address] Coronary artery disease involving [place] heart without angina pectoris, unspecified vessel or lesion type (Primary Dx); Hyperlipidemia LDL goal <70 03/04/2025 Documentation [facility] Non-Oncology Infusion [address] [place] [address] Tigist Houston RN 03/03/2025 Orders Only [facility] Non-Oncology Infusion [address] [place] [address] Talat Ricci MD Hyperlipidemia LDL goal <70 (Primary Dx); Coronary artery disease involving [place] heart without angina pectoris, unspecified vessel or lesion type 03/03/2025 Telephone [facility] Cardiology [address] [facility] [address] [place] [address] Talat Ricci MD 03/03/2025 2:00 PM CDT Office Visit [facility] Cardiology [address] [place] [address] Talat Ricci MD Murmur, heart (Primary Dx); Coronary artery disease involving [place] coronary artery of [place] heart without angina pectoris; Essential hypertension; PVC (premature ventricular contraction); Takotsubo cardiomyopathy; Hyperlipidemia LDL goal <70 02/25/2025 11:36 AM CDT - 02/25/2025 11:59 PM CDT Hospital Encounter [facility] Medical Office Bldg 1 Breast [facility] [address] [place] [address] Screening mammogram, encounter for Discharge Disposition: Discharge to home or self care 02/05/2025 Telephone [facility] Cardiology [address] [place] [address] Talat Ricci MD from Last 3 Months Allergies Active Allergy Reactions Criticality Noted Date Comments Amoxicillin Anaphylaxis High 07/21/2021 Codeine Joint pain Low 09/25/2023 Losartan Potassium Chest tightness Medium 09/25/2023 Nitrofurantoin Swelling Medium 07/17/2022 Throat tightness Penicillins Anaphylaxis High 05/16/2018 Promethazine Hallucinations Medium 09/25/2023 Iwbnpmx-Nja-Esb Reductase Inhibitors Muscle pain Medium 01/18/2023 Sulfamethoxazole [...] cardiomyopathy 08/01/2022 PVC (premature ventricular contraction) 11/20/19 20 Assessment & Plan (05/14/2024 8:53 PM CDT): [...] (11/20/2019): Added automatically from request for surgery [id number] Encounter for screening colonoscopy 08/30/2018 Overview (08/30/2018): Added automatically from request for surgery [id number] History of breast cancer 05/16/2018 Disorder of breast 11/09/2009 Social History Tobacco Use Types Packs/Day Years Used Date Smoking Tobacco: Former Cigarettes Q uit: 11/20/2017 Smokeless Tobacco: Never Tobacco Cessation:Counseling Given: Not Answered Alcohol Use Standard Drinks/Week Comments Not Currently 0 (1 standard drink = 0.6 oz pur e alcohol) TouristEye[employer] Answer Date Recorded In the past 12 months has [employer], gas, oil, or water [employer] threatened to shut off services in your [...] week 06/10/2024 How often do you attend [facility] or hinduism services? Never 06/10/2024 Do you belong to any clubs o r organizations such as baptism groups, unions, fraternal or athletic groups, or [...] were you homeless or living in a senior care (including now)? No 06/10/2024 Personal Safety Answer Date Recorded Have you ever been in or are you currently in a harmful physical or emotional relationship or is someone making you feel afraid or unsafe? 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 Gender Identity Not on file Sexual Orientation [...] 03/17/2025 1:43 PM CDT Plan of Treatment Not on file Medical Devices Implanted Type Area Sensor Operator Device Identifier Shelf Expiration Date Model / Serial / Lot [employer] Vascade Mvp 6-12fr Venous Closure [id number] - [id number] - [id number] Implanted:Qty: 1 on 06/09/2024 by Miguel Angel Shepherd III, MD at [facility] Collagen [employer] 02/10/2026 800-612C- 10U / [id number] / [id number] [employer] Vascade Mvp 6-12fr Venous Closure [id number] - [id number] - [id number] Implanted:Qty: 1 on 06/09/2024 by Miguel Angel Shepherd III, MD at [facility] Collagen [employer] 02/10/2026 800-612C- 10U / [id number] [id number] / [id number] [employer] Vascade Mvp 6-12fr Venous Closure [id number] - [id number] - [id number] Implanted:Qty: 1 on 06/09/2024 by Miguel Angel Shepherd III, MD at [facility] Collagen [employer] 02/10/2026 800-612C- 10U / [id number] / [id number] [employer] Vincent [id number] Device Closure Angio-Seal Vip Bondek-Plus Polyglyd L70 Cm Od6 Fr Odsec.035 In Vascular - [id number] Implanted:Qty: 1 on 11/28/2019 by Jer Mckeon MD at [facility] Daig Vincent[employer] [id number] / / [employer] Vincent Upsylon 35.4cm Elongation Profile Lightweight Large Pore Low [id number] - [id number] Implanted:Qty: 1 on 09/25/2023 by Damián Cohen MD at [facility] Pelvis [employer] Vincent 06/21/2026 [id number] / / [id number] Viv[employer] Sling Urinary Incontinence Female Stress Short Desara Blue Javier-Ds01bs - Sna - [id number] Implanted:Qty: 1 on 09/25/2023 by Damián Cohen MD at [facility] Pelvis [employer] 05/21/2026 JAVIER-DS01B S / NA / [id number] Procedures Procedure Name Priority Date/Time Associated Diagnosis Comments ECG 12-LEAD Routine 03/17/2025 1:53 PM CDT PVC (premature ventricular contraction) POCT LIPID PANEL Routine 03/03/2025 2:09 PM CDT Coronary artery disease involving [place] coronary artery of [place] heart without angina pectoris Hyperlipidemia LDL goal <70 SCREENING MAMMOGRAM BILATERAL W ALEXANDER Schedule Routine, Read Routine (OP Routine) 02/25/2025 11:59 AM CDT Screening mammogram, encounter for from Last 3 Months Results * ECG 12 lead (03/17/2025 1:53 PM CDT) Romina Ann NP ECG ORDERABLES Adrienne l Result * (ABNORMAL) [...] age 40, based on guidelines of the [place] [employer] (ACR Practice Parameter for the Performance of Screening and Diagnostic Mammography) and [place] [employer]. For women [...] nal Result from Last 3 Months Insurance COMMERCIAL GENERIC MEDICARE COMMERCIAL GENERIC MEDICARE [facility] FINANCIAL Advance Directives For more information, please contact: [phone] Documents on File Type Date Recorded Patient Tobacco Warehouse Manager Expl anation ADVANCE DIRECTIVE 06/10/2024 4:57 PM POWER OF SPINNER CONTINUOUS-MEDICAL * Full Code (Latest Code Status on File) Date Activated Date Inactivated Comments 09/25/2023 3:50 PM 09/26/2023 7:54 PM Care Teams Burlap Bag Sewer Relationship Specialty Start Date End Date Adin Solo MD [address] [place] [id number] PCP - General 12/09/19
[2025-03-24 16:21] LABS: Basophils Percent Auto 0.3 % (0.2-1.2); Eosinophils Absolute Auto 0.1 K/mm3 (0-0.3); Eosinophils Percent Auto 0.4 % (0-4.4); Hematocrit 42.9 % (37.0-47.0); Hemoglobin 13.9 g/dL (12.0-15.0); Immature Granulocyte Absolute 0.04 K/mm3 (0.00-0.031); Immature Granulocyte Percent A 0.3 % (0-0.5); Lymphocytes Absolute Auto 2.33 K/mm3 (0.9-3.2); Lymphocytes Percent Auto 16.2 % (18.3-44.2); Mean Corpuscular HGB Conc 32.4 g/dl (32-36); Mean Corpuscular Hemoglobin 31.4 pg (26-34); Mean Corpuscular Volume 96.8 fl (80-100); Monocytes Absolute Auto 1.2 K/mm3 (0.1-0.6); Neutrophils Absolute Auto 10.8 K/mm3 (1.3-6.7); Neutrophils Percent Auto 74.8 % (45.5-73.1); Platelet Count Result 241 k/mm3 (150-375); Red Blood Count 4.43 M/mm3 (4.2-5.4); Red Cell Distribution Width 13.2 % (11.5-14.5); White Blood Count 14.4 K/mm3 (4.5-10.0)
[2025-03-24 16:57] LABS: Alanine Aminotransferase 15 U/L (6-35); Albumin Level 4.5 g/dL (3.5-5.1); Alkaline Phosphatase 82 U/L (38-126); Anion Gap 11 mmol/L (4-12); Aspartate Amino Transferase 26 U/L (14-36); Bilirubin,Total 0.5 mg/dL (0.2-1.3); Blood Urea Nitrogen 25 mg/dL (7-17); Calcium 9.6 mg/dL (8.4-10.2); Carbon Dioxide 24 mmol/L (22-30); Chloride 105 mmol/L (98-107); Estimated Glomerular Filt Rate > 60; Glucose 109 mg/dL (65-110); Sodium 140 mmol/L (137-145); Total Protein 7.7 g/dL (6.3-8.2)
[2025-03-24 17:55] LABS: Erythrocyte Sedimentation Rate 16 mm/hr (0-20)
== END 2025-03-24 15:42 | disposition home or self-care (01) ==
LOC: ANHLAB 15:45
PROVIDERS: PCP Family Medicine; Visit Provider Internal Medicine Hematology & Oncology
DX: D75.1 Secondary polycythemia (principal)
CPT/HCPCS: 36415; 80053; 81270; 85025; 85652

== ENCOUNTER 2025-04-07 13:25 | Outpatient (CLI) | payer MEDICARE, SELFPAY ==
--- OUTSIDE RECORDS SUMMARY | 2025-04-07 14:08 | XMS_ITS | Referral Summary ---
Author Organization [facility] Address [address] [place] [address] Care Team Providers Care Hospice Case Manager Name Role Phone Adin Solo MD Primary Care Provider [phone] Encounters Date Type Department Care Team Description 03/20/2025 Telephone [facility] Cardiology [address] [address] [address] [place] [address] Talat Ricci MD 03/17/2025 1:45 PM CDT Office Visit [facility] [address] [facility] [address], [place] [address] Romina Ann NP PVC (premature ventricular contraction) (Primary Dx); History of cardiac radiofrequency ablation (RFA) 03/11/2025 1:00 PM CDT Infusion [facility] Non-Oncology Infusion [address] [place] [address] Coronary artery disease involving northway heart without angina pectoris, unspecified vessel or lesion type (Primary Dx); Hyperlipidemia LDL goal <70 03/04/2025 Documentation [facility] Non-Oncology Infusion [address] [place] [address] Tigist Houston RN 03/03/2025 Orders Only [facility] Non-Oncology Infusion [address] [place] [address] Talat Ricci MD Hyperlipidemia LDL goal <70 (Primary Dx); Coronary artery disease involving northway heart without angina pectoris, unspecified vessel or lesion type 03/03/2025 Telephone [facility] Cardiology [address] [facility] [address] [address] Talat Ricci MD 03/03/2025 2:00 PM CDT Office Visit [facility] Cardiology [address] [place] [address] Talat Ricci MD Murmur, heart (Primary Dx); Coronary artery disease involving northway coronary artery of northway heart without angina pectoris; Essential hypertension; PVC (premature ventricular contraction); Takotsubo cardiomyopathy; Hyperlipidemia LDL goal <70 02/25/2025 11:36 AM CDT - 02/25/2025 11:59 PM CDT Hospital Encounter [facility] Medical Office Bldg 1 Breast [facility] [address] [facility] [address] [place] [address] Screening mammogram, encounter for Discharge Disposition: Discharge to home or self care 02/05/2025 Telephone [facility] Cardiology [address] [place] [address] Talat Ricci MD from Last 3 Months Allergies Active Allergy Reactions Criticality Noted Date Comments Amoxicillin Anaphylaxis High 07/21/2021 Codeine Joint pain Low 09/25/2023 Losartan Potassium Chest tightness Medium 09/25/2023 Nitrofurantoin Swelling Medium 07/17/2022 Throat tightness Penicillins Anaphylaxis High 05/16/2018 Promethazine Hallucinations Medium 09/25/2023 Sxlzqig-Lab-Pso Reductase Inhibitors Muscle pain Medium 01/18/2023 Sulfamethoxazole [...] nausea 3 Active apixaban (ELIQUIS) 5 mg tabletIndication s:VTE Prophylaxis Take 1 tablet (5 mg total) by mouth 2 (two) times a day 60 tablet 2 4 Active Additional Information Patient not taking.Reported on 03/17/2025 amLODIPine (NORVASC) 5 mg tabletIndication s:hypertension Take 1 tablet (5 mg total) by mouth daily 90 tablet 3 5 02/18/[address] (ACIPHEX) 20 mg EC tablet Take 1 tablet (20 mg total) by mouth 2 (two) times a day 5 Active Active Problems Problem Noted Date Diagnosed [...] (11/20/2019): Added automatically from request for surgery [id number] Encounter for screening colonoscopy 08/30/2018 Overview (08/30/2018): Added automatically from request for surgery [id number] History of breast cancer 05/16/2018 Disorder of breast 11/09/2009 Social History Tobacco Use Types Packs/Day Years Used Date Smoking Tobacco: Former Cigarettes Q uit: 11/20/2017 Smokeless Tobacco: Never Tobacco Cessation:Counseling Given: Not Answered Alcohol Use Standard Drinks/Week Comments Not Currently 0 (1 standard drink = 0.6 oz pur e alcohol) [facility] Moore[facility] Answer Date Recorded In the past 12 months has e [employer], gas, oil, or water [employer] threatened to shut off services in your [...] often do you attend chur ch or lutheran services? 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 Gender Identity Not on file Sexual [...] on file Medical Devices Implanted Type Area Electric Locomotive Firer/Fireman Device Identifier Shelf Expiration Date Model / Serial / Lot [employer] Inc Vascade Mvp 6-12fr Venous Closure [id number] - [id number] - [id number] Implanted:Qty: 1 on 06/09/2024 by Miguel Angel Shepherd III, MD at [facility] Collagen [employer] Inc 02/10/2026 800-612C- 10U / [id number] / [id number] [employer] Inc Vascade Mvp 6-12fr Venous Closure [id number] - [id number] - [id number] Implanted:Qty: 1 on 06/09/2024 by Miguel Angel Shepherd III, MD at [facility] Collagen [employer] Inc 02/10/2026 800-612C- 10U / [id number] [id number] / [id number] [id number] [employer] Inc Vascade Mvp 6-12fr Venous Closure [id number] - [id number] - [id number] Implanted:Qty: 1 on 06/09/2024 by Miguel Angel Shepherd III, MD at [facility] Collagen [employer] Inc 02/10/2026 800-612C- 10U / [id number] [id number] / [id number] [id number] [employer] Vincent [id number] Device Closure Angio-Seal Vip Bondek-Plus Polyglyd L70 Cm Od6 Fr Odsec.035 In Vascular - [id number] Implanted:Qty: 1 on 11/28/2019 by Jer Mckeon MD at [facility] Daig Vincent/[employer] [id number] / / [place] [employer] Vincent Upsylon 35.4cm Elongation Profile Lightweight Large Pore Low [id number] - [id number] Implanted:Qty: 1 on 09/25/2023 by Damián Cohen MD at [facility] Pelvis [place] [employer] Vincent 06/21/2026 [id number] / / [id number] [employer] Inc Sling Urinary Incontinence Female Stress Short Desara Blue Javier-Ds01bs - Sna - [id number] Implanted:Qty: 1 on 09/25/2023 by Damián Cohen MD at [facility] Pelvis [employer] 05/21/2026 JAVIER-DS01B S / NA / [id number] Procedures Procedure Name Priority Date/Time Associated Diagnosis Comments ECG 12-LEAD Routine 03/17/2025 1:53 PM CDT PVC (premature ventricular contraction) POCT LIPID PANEL Routine 03/03/2025 2:09 PM CDT Coronary artery disease involving northway coronary artery of northway heart without angina pectoris Hyperlipidemia LDL goal <70 SCREENING MAMMOGRAM BILATERAL W ALEXANDER Schedule Routine, Read Routine (OP Routine) 02/25/2025 11:59 AM CDT Screening mammogram, encounter for from Last 3 Months Results * ECG 12 lead (03/17/2025 1:53 PM CDT) Romina Ann US ADMINISTRATIVE LAW JUDGE ECG ORDERABLES Adrienne l Result * (ABNORMAL) [...] age 40, based on guidelines of the [place] [employer] (ACR Practice Parameter for the Performance of Screening and Diagnostic Mammography) and [place] [employer]. For women [...] MEDICARE COMMERCIAL GENERIC MEDICARE COMMERCIAL GENERIC MEDICARE [facility] FINANCIAL Advance Directives For more information, please contact: [phone] Documents on File Type Date Recorded Patient Grain Distributor Expl anation ADVANCE DIRECTIVE 06/10/2024 4:57 PM POWER OF MOTORS ASSEMBLER-MEDICAL * Full Code (Latest Code Status on File) Date Activated Date Inactivated Comments 09/25/2023 3:50 PM 09/26/2023 7:54 PM Care Teams Hospice Case Manager Relationship Specialty Start Date End Date Adin Solo MD [address] [place] [address] PCP - General 12/09/19
--- OUTSIDE RECORDS SUMMARY | 2025-04-07 14:08 | XMS_ITS | Clinical Summary ---
Author Organization [facility] Address [address] [place] [address] Care Team Providers Care Sed Middle School Teacher Name Role Phone Adin Solo MD Primary Care Provider [phone] Allergies Active Allergy Reactions Criticality Noted Date Comments Amoxicillin Anaphylaxis High 07/21/2021 Codeine Joint pain Low 09/25/2023 Losartan Potassium Chest tightness Medium 09/25/2023 Nitrofurantoin Swelling Medium 07/17/2022 Throat tightness Penicillins Anaphylaxis High 05/16/2018 Promethazine Hallucinations Medium 09/25/2023 Jpsoeui-Gtp-Ibu Reductase Inhibitors Muscle pain Medium 01/18/2023 Sulfamethoxazole [...] 8 (eight) hours as needed for nausea 10/15/202 3 Active apixaban (ELIQUIS) 5 mg tabletIndication [...] (11/20/2019): Added automatically from request for surgery [id number] Encounter for screening colonoscopy 08/30/2018 Overview (08/30/2018): Added automatically from request for surgery [id number] History of breast cancer 05/16/2018 Disorder of breast 11/09/2009 Encounters Date Type Department Care Team Description 03/20/2025 Telephone [facility] Cardiology [address] [facility] [address] [place] [address] Talat Ricci MD 03/17/2025 1:45 PM CDT Office Visit [facility] [address] [facility] [address] [address] Romina Ann NP PVC (premature ventricular contraction) (Primary Dx); History of cardiac radiofrequency ablation (RFA) 03/11/2025 1:00 PM CDT Infusion [facility] Non-Oncology Infusion [address] [place] [address] Coronary artery disease involving oneida heart without angina pectoris, unspecified vessel or lesion type (Primary Dx); Hyperlipidemia LDL goal <70 03/04/2025 Documentation [facility] Non-Oncology Infusion [address] [place] [address] Tigist Houston RN 03/03/2025 2:00 PM CDT Office Visit [facility] Cardiology [address] [facility] [address] [place] [address] Talat Ricci MD Murmur, heart (Primary Dx); Coronary artery disease involving oneida coronary artery of oneida heart without angina pectoris; Essential hypertension; PVC (premature ventricular contraction); Takotsubo cardiomyopathy; Hyperlipidemia LDL goal <70 03/03/2025 Orders Only [facility] Non-Oncology Infusion [address] [place] [address] Talat Ricci MD Hyperlipidemia LDL goal <70 (Primary Dx); Coronary artery disease involving oneida heart without angina pectoris, unspecified vessel or lesion type 03/03/2025 Telephone [facility] Cardiology [address] [facility] [address] [address] Talat Ricci MD 02/25/2025 11:36 AM CDT - 02/25/2025 11:59 PM CDT Hospital Encounter [facility] Medical Office Bldg 1 Breast [facility] [address] [facility] [address] [place] [address] Screening mammogram, encounter for Discharge Disposition: Discharge to home or self care 02/05/2025 Telephone [facility] Cardiology [address] [place] [address] Talat Ricci MD from Last [...] drink = 0.6 oz pur e alcohol) [facility] Utilities Answer Date Recorded In the past 12 months has [employer], gas, oil, or water company threatened to [...] often do you attend chur ch or mandaen services? Never 06/10/2024 Do you belong to any clubs o r organizations such as bahai groups, unions, fraternal or athletic groups, or [...] any time in the past 12 m [facility], were you homeless or living in a fci (including now)? No 06/10/2024 Personal Safety Answer Date Recorded Have you ever been in or are you currently in a harmful physical or emotional relationship or is someone making you feel afraid or unsafe? 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 Gender Identity Not on file Sexual [...] 03/11/2026 03/11/2025 Medical Devices Implanted Type Area Pyrometer Operator Device Identifier Shelf Expiration Date Model / Serial / Lot [employer] Inc Vascade Mvp 6-12fr Venous Closure [id number] - [id number] - [id number] Implanted:Qty: 1 on 06/09/2024 by Miguel Angel Shepherd III, MD at [facility] Collagen [employer] Inc 02/10/2026 800-612C- 10U / [id number] [id number] / [id number] [employer]iva Medical Inc Vascade Mvp 6-12fr Venous Closure [id number] - [id number] - [id number] Implanted:Qty: 1 on 06/09/2024 by Miguel Angel Shepherd III, MD at [facility] Collagen [employer] Inc 02/10/2026 800-612C- 10U / [id number] [id number] / [id number] [employer] Inc Vascade Mvp 6-12fr Venous Closure [id number] - [id number] - [id number] Implanted:Qty: 1 on 06/09/2024 by Miguel Angel Shepherd III, MD at [facility] Collagen [employer] Inc 02/10/2026 800-612C- 10U / [id number] [id number] / [id number] [id number] [employer] Vincent [id number] Device Closure Angio-Seal Vip Bondek-Plus Polyglyd L70 Cm Od6 Fr Odsec.035 In Vascular - [id number] Implanted:Qty: 1 on 11/28/2019 by Jer Mckeon MD at [facility] Daig Vincent[employer] [id number] / / [employer] Vincent Upsylon 35.4cm Elongation Profile Lightweight Large Pore Low [id number] - [id number] Implanted:Qty: 1 on 09/25/2023 by Damián Cohen MD at [facility] Pelvis [employer] Vincent 06/21/2026 [id number] / / [id number] Viviana [employer] Inc Sling Urinary Incontinence Female Stress Short Desara Blue Javier-Ds01bs - Sna - [id number] Implanted:Qty: 1 on 09/25/2023 by Damián Cohen MD at [facility] Pelvis [employer] 05/21/2026 JAVIER-DS01B S / NA / [id number] Procedures Procedure Name Priority Date/Time Associated Diagnosis Comments ECG 12-LEAD Routine 03/17/2025 1:53 PM CDT PVC (premature ventricular contraction) POCT LIPID PANEL Routine 03/03/2025 2:09 PM CDT Coronary artery disease involving oneida coronary artery of oneida heart without angina pectoris Hyperlipidemia LDL goal <70 SCREENING MAMMOGRAM BILATERAL W ALEXANDER Schedule Routine, Read Routine (OP Routine) 02/25/2025 11:59 AM CDT Screening mammogram, encounter for from Last 3 Months Results * ECG 12 lead (03/17/2025 1:53 PM CDT) Romina Ann SMALL MACHINE BINDERY OPERATOR ECG ORDERABLES Adrienne l Result * (ABNORMAL) [...] age 40, based on guidelines of the [place] [employer] (ACR Practice Parameter for the Performance of Screening and Diagnostic Mammography) and [place] [employer] Gynec[employer]. For women [...] MEDICARE COMMERCIAL GENERIC MEDICARE COMMERCIAL GENERIC MEDICARE [facility] Advance Directives For more information, please contact: [phone] Documents on File Type Date Recorded Patient Jailer/Training Officer Expl anation ADVANCE DIRECTIVE 06/10/2024 4:57 PM POWER OF CONTENT PUBLISHER-MEDICAL * Full Code (Latest Code Status on File) Date Activated Date Inactivated Comments 09/25/2023 3:50 PM 09/26/2023 7:54 PM Care Teams Sed Middle School Teacher Relationship Specialty Start Date End Date Adin Solo MD [address] [place] [id number] PCP - General 12/09/19
--- OUTSIDE RECORDS SUMMARY | 2025-04-07 14:08 | XMS_ITS | Clinical Summary ---
Author Organization [facility] Darlene chappell Vincevic Address [address] [place] [address] Care Team Providers Care Manager Talent Acquisition Name Role Phone Adin Solo MD Primary Care Provider [phone] Allergies Active Allergy Reactions Criticality Noted Date [...] Encounters Date Type Department Care Team Description 04/02/2025 Orders Only [facility] Oncology and Hematology - [address] [facility] [address] [address] Jorje Burns MD 03/31/2025 External Device Data STL ABSTRACTION Provider, Abstract 03/31/2025 External Device Data STL ABSTRACTION Provider, Abstract 03/31/2025 External Device Data STL ABSTRACTION Provider, Abstract 03/25/2025 Orders Only [facility] Oncology and Hematology - [address] [place] [address] Jorje Burns MD 03/24/2025 1:30 PM CDT Office Visit [facility] Oncology and Hematology [address] [place] [address] Jorje Burns MD Erythrocytosis (Primary Dx) [...] on file Legal Sex Female 3:04 PM SPINNER FRAME Gender Identity Not on file Sexual Orientation [...] Care Team (Late st Contact Info) Description 04/22/2025 4:30 PM CDT Telephone Check Up [facility] Oncology and Hematology [address] [place] [address] Jorje Burns MD [address] [facility] [address] [place] [address] Health Maintenance Due Date Last Done Comments [...] VACCINE (#1) 2024 BREAST CANCER SCREENING 02/25/2026 02/26/20 25, 02/25/2025, 12/24/2023, Additional history exists RSV VACCINE (60+ or ) (1 - 1-dose 75+ series) 2028 Procedures Procedure Name Priority Date/Time Associated Diagnosis Comments CBC WITH DIFFERENTIAL Routine 03/24/2025 12:50 PM CDT COMPREHENSIVE METABOLIC PANEL Routine 03/24/2025 12:47 PM CDT CBC WITH DIFFERENTIAL Routine 03/24/2025 12:38 PM CDT JAK2 EXON 12 MUTATION ANALYSIS Routine 03/24/2025 11:25 AM CDT from Last 3 Months Results * CBC WITH DIFFERENTIAL (03/24/2025 12:50 PM CDT) Only the most recent of2 resultswithin the time period is included. Blood Jorje Burns MD HEMATOLOGY ORDERABLES Final Res ult * COMPREHENSIVE METABOLIC PANEL (03/24/2025 12:47 PM CDT) Blood Jorje Burns MD CHEMISTRY ORDERABLES Final Resu lt * JAK2 EXON 12 MUTATION ANALYSIS (03/24/2025 11:25 AM CDT) Blood Jorje Burns MD HEMATOLOGY ORDERABLES COM Final Result from Last 3 Months Insurance MEDICARE PART A AND B [employer] Care Teams Manager Talent Acquisition Relationship Specialty Start Date End Date Adin Solo MD [address] [place] [phone] PCP - General Family Practice 03/24/25
--- OUTSIDE RECORDS SUMMARY | 2025-04-07 14:08 | XMS_ITS | Encounter Summary ---
Author Organization [facility] Healthcare Address [address] [place] [address] Care Team Providers Care Instrumentation Engineering Technician Name Role Phone Adin Solo MD Primary Care Provider [phone] Encounter Details Date Type Department Care Team (Late st Contact Info) Description 03/20/2025 Telephone [facility] Cardiology [address] [place] [address] Talat Ricci MD [address] [facility] [address] [place] [address] [facility] [address] [place] [address] Social History Tobacco Use Types Packs/Day Years Used Date Smoking Tobacco: Former Cigarettes Q uit: 11/20/2017 Smokeless Tobacco: Never Alcohol Use Standard Drinks/Week Comments Not Currently 0 (1 standard drink = 0.6 oz pur e alcohol) [facility] Utilities Answer Date Recorded In the past 12 months has [employer], gas, oil, or water [employer] threatened to shut off services in your [...] week 06/10/2024 How often do you attend [facility] or quaker services? 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 Please advise. * Telephone Encounter - Yolanda Herrera - 03/20/2025 9:06 AM CDT Pt states [...] on filedocumented in this encounter Care Teams Instrumentation Engineering Technician Relationship Specialty Start Date End Date Adin Solo MD [address] [place] [id number] PCP - General 12/09/19 documented as of this encounter
--- OUTSIDE RECORDS SUMMARY | 2025-04-07 14:08 | XMS_ITS | Encounter Summary ---
Author Organization [facility] Address [address] [place] [address] Care Team Providers Care Wet Char Conveyor Tender Name Role Phone Adin Solo MD Primary Care Provider [phone] Encounter Details Date Type Department Care Team (Late Contact Info) Description 04/02/2025 Orders Only [facility] Oncology and Hematology [address] [place] [address] Jorje Burns MD [facility] [address] [place] [address] Social History Tobacco Use Types Packs/Day Years Used Date Smoking Tobacco: Never Smokeless Tobacco: Never Alcohol Use Standard Drinks/Week Comments Never 0 (1 standard drink = 0.6 oz pur e alcohol) Comments Unknown Sex and Gender Information Value Date Recorded Sex Assigned at Not on file 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 Gender Identity Not on file Sexual Orientation Not on file documented as of this encounter Plan of Treatment Upcoming Encounters Date Type Department Care Team (Late Contact Info) Description 04/22/2025 4:30 PM CDT Telephone Check Up [facility] Oncology and Hematology [facility] [address] [place] [address] Jorje Burns MD [facility] [address] [place] [address] documented as of this encounter Procedures Procedure Name Priority Date/Time Associated Diagnosis Comments JAK2 EXON 12 MUTATION ANALYSIS Routine 03/24/2025 11:25 AM CDT documented in this encounter Results * JAK2 EXON 12 MUTATION ANALYSIS (03/24/2025 11:25 AM CDT) Blood Jorje Burns MD HEMATOLOGY ORDERABLES COM Final Result documented in this encounter Visit Diagnoses Not on filedocumented in this encounter Care Teams Wet Char Conveyor Tender Relationship Specialty Start Date End Date Adin Solo MD [address] [place] [phone] PCP - General Family Practice 03/24/25 documented as of this encounter
[2025-04-09 15:29] LABS: Erythropoietin (EPO) 6.7 mIU/mL (2.6-18.5)
== END 2025-04-07 13:26 | disposition home or self-care (01) ==
PROVIDERS: PCP Family Medicine; Visit Provider Internal Medicine Hematology & Oncology
DX: D75.1 Secondary polycythemia (principal)
CPT/HCPCS: 36415; 82668